=== PATIENT | male | born 1985 | race Caucasian/White ===

== ENCOUNTER 2018-03-17 08:59 | Emergency (ER) | payer SELFPAY ==
[2018-03-17 09:36] LABS: Absolute Lymphocytes (CBC) 1.5 K/uL (0.7-4.9); Absolute Monocytes 0.6 K/uL (0.1-1.3); Absolute Neutrophil 4.9 K/uL (1.8-8.0); Basophils % 0.5 % (0-1.3); Eosinophils % 1.4 % (0-4.4); Hematocrit 40.5 % (39.6-49.0); Lymphocytes % 21.4 % (15.3-44.8); MCH 32.3 pg (27.0-35.0); MCV 94.5 fL (80-100); MPV 8.3 fL (7.6-11.3); Monocytes % 8.1 % (3.3-12.3); RBC Red Blood Cell Count 4.28 M/uL (4.33-5.43)
[2018-03-17 09:58] LABS: ALT/SGPT 21 U/L (12-78); AST/SGOT 23 U/L (15-37); Albumin 4.2 g/dL (3.4-5.0); Alkaline Phosphatase 113 U/L (45-117); BUN Blood Urea Nitrogen 16 mg/dL (7-18); Bicarbonate 28 mmol/L (21-32); Bilirubin Direct 0.2 mg/dL (0-0.2); Bilirubin Total 0.8 mg/dL (0.2-1.0); Glucose Level 120 mg/dL (74-106); Lipase 133 U/L (73-393); Potassium 4.1 mmol/L (3.5-5.1); Protein, Total 7.8 g/dL (6.4-8.2); Sodium Level 140 mmol/L (136-145)
--- NOTE | 2018-03-17 10:22 | RAD REPORT ---
EXAM DESCRIPTION: RAD - Chest Pa And Lat (2 Views) - 03/17/2018 9:28 am CLINICAL HISTORY: ab pain Chest pain. COMPARISON: CHEST SINGLE VIEW dated 04/07/2015; CHEST PA AND LAT 2 VIEW dated 04/07/2015; CHEST PA AND L AT 2 VIEW dated 12/08/2007; ABDOMEN ACUTE SERIES dated 11/08/2007 FINDINGS: The lungs are clear. The heart is normal in size. No displaced fractures. IMPRESSION: No acute or concerning finding suspected.
--- NOTE | 2018-03-17 10:28 | EDPHYS ---
Physician Documentation [facility] Name: Branden Davidson Age: 32 yrs Sex: Male : 1985 Arrival Date: 03/17/2018 Time: 09:01 Bed 20 Private MD: Out, [facility] ED Physician Kris Morton HPI: 03/17 10:30 This 32 yrs old Male presents to ER via Ambulatory with complaints of gs Abdominal Pain. 10:30 The patient presents with abdominal pain in the epigastric area. Onset: The gs symptoms/episode began/occurred 2 month(s) ago. The symptoms do not radiate. Associated signs and symptoms: Pertinent positives: vomiting. The symptoms are described as crampy. Modifying factors: The symptoms are alleviated by nothing, the symptoms are aggravated by alcohol, food. Severity of pain: At its worst the pain was moderate in the emergency department the pain has improved moderately. The patient has experienced similar episodes in the past, several times. The patient has not recently seen a physician. Historical: - Allergies: 09:08 Xanax; hb - Home Meds: 09:08 None [Active]; hb - PMHx: 09:08 Bipolar disorder; Schizophrenia; Seizures; hb - PSHx: 09:08 None; hb - Immunization history:: Adult Immunizations up to date. - Social history:: Smoking status: Patient/guardian denies using tobacco. - Ebola Screening: : No symptoms or risks identified at this time. ROS: 10:30 All other systems are negative. gs Exam: 10:30 Head/Face: Normocephalic, atraumatic. Eyes: Pupils equal round and reactive to light, gs extra-ocular motions intact. Lids and lashes normal. Conjunctiva and sclera are non-icteric and not injected. Cornea within normal limits. Periorbital areas with no swelling, redness, or edema. Neck: Trachea midline, no thyromegaly or masses palpated, and no cervical lymphadenopathy. Supple, full range of motion without nuchal rigidity, or vertebral point tenderness. No Meningismus. Chest/axilla: Normal chest wall appearance and motion. Nontender with no deformity. No lesions are appreciated. Cardiovascular: Regular rate and rhythm with a normal S1 and S2. No gallops, murmurs, or rubs. Normal PMI, no JVD. No pulse deficits. Respiratory: Lungs have equal breath sounds bilaterally, clear to auscultation and percussion. No rales, rhonchi or wheezes noted. No increased work of breathing, no retractions or nasal flaring. Back: No spinal tenderness. No costovertebral tenderness. Full range of motion. Skin: Warm, dry with normal turgor. Normal color with no rashes, no lesions, and no evidence of cellulitis. MS/ Extremity: Pulses equal, no cyanosis. Neurovascular intact. Full, normal range of motion. Neuro: Awake and alert, GCS 15, oriented to person, place, time, and situation. Cranial nerves II-XII grossly intact. Motor strength 5/5 in all extremities. Sensory grossly intact. Cerebellar exam normal. Normal gait. 10:30 Constitutional: The patient appears in no acute distress, alert, awake. 10:30 ENT: Dental exam: dental caries, diffusely. 10:30 Abdomen/GI: Palpation: mild abdominal tenderness, in the epigastric area, right upper quadrant and left upper quadrant. Vital Signs: 09:07 BP 126 / 83; Pulse 61; Resp 16; Temp 97.7(TE); Pulse Ox 100% on R/A; Pain 10/10; hb 10:00 BP 113 / 74; Pulse 81; Resp 17; Pulse Ox 97% on R/A; rb1 MDM: 09:09 Patient medically screened. 10:30 Differential diagnosis: gastritis, gastroesophageal reflux disease, pancreatitis. Data gs reviewed: vital signs, nurses notes. Response to treatment: the patient's symptoms have markedly improved after treatment, no emesis. 03/17 09:10 Order name: Basic Metabolic Panel; Complete Time: 10:13 03/17 09:10 Order name: CBC with Diff; Complete Time: 10: 03/17 09:10 Order name: Hepatic Function; Complete Time: 10:13 03/17 09:10 Order name: Lipase; Complete Time: 10:13 03/17 09:10 Order name: XRAY Chest Pa And Lat (2 Views); Complete Time: 10:26 03/17 09:10 Order name: IV Saline Lock; Complete Time: 09:21 03/17 09:10 Order name: Labs collected and sent; Complete Time: 09:22 Administered Medications: No medications were administered Disposition: 03/17/18 10:28 Discharged to Home. Impression: Gastritis, unspecified. - Condition is Stable. - Discharge Instructions: Gastritis, Adult, [id number]. - Prescriptions for Pepcid 20 mg Oral Tablet - take 1 tablet by ORAL route every 12 hours for 10 days; 30 tablet. - Medication Reconciliation Form, Thank You Letter, Antibiotic Education, Prescription Opioid Use form. - Follow up: Jairo Milton MD; When: 2 - 3 days; Reason: Re-evaluation by your physician. Signatures: Dispatcher [employer] EDMS Kathy Fu, RN RN rb1 Marta Berg RN RN Kris Morton MD MD Corrections: (The following items were deleted from the chart) 10:35 09:10 Urine Dipstick-Ancillary ordered. rb1 10:38 10:28 03/17/2018 10:28 Discharged to Home. Impression: Gastritis, unspecified. rb1 Condition is Stable. Forms are Medication Reconciliation Form, Thank You Letter, Antibiotic Education, Prescription Opioid Use. Follow up: Jairo Milton; When: 2 - 3 days; Reason: Re-evaluation by your physician.
--- NOTE | 2018-03-17 10:28 | ER ---
Nurse's Notes [facility] Name: Branden Davidson Age: 32 yrs Sex: Male : 1985 Arrival Date: 03/17/2018 Time: 09:01 Bed 20 Private MD: Out, [facility] Diagnosis: Gastritis, unspecified Presentation: 03/17 09:06 Presenting complaint: Patient states: RUQ pain x 2 months, nausea and bloody emesis x 2 hb days. Denies blood in stool/diarrhea. Transition of care: patient was not received from another setting of care. Onset of symptoms is unknown. Risk Assessment: Do you want to hurt yourself or someone else? Patient reports no desire to harm self or others. Initial Sepsis Screen: Does the patient meet any 2 criteria? No. Patient's initial sepsis screen is negative. Does the patient have a suspected source of infection? No. Patient's initial sepsis screen is negative. Care prior to arrival: None. 09:06 Method Of Arrival: Ambulatory hb 09:06 Acuity: NOEMI 3 hb Historical: - Allergies: 09:08 Xanax; hb - Home Meds: 09:08 None [Active]; hb - PMHx: 09:08 Bipolar disorder; Schizophrenia; Seizures; hb - PSHx: 09:08 None; hb - Immunization history:: Adult Immunizations up to date. - Social history:: Smoking status: Patient/guardian denies using tobacco. - Ebola Screening: : No symptoms or risks identified at this time. Screenin:08 Abuse screen: Denies threats or abuse. Denies injuries from another. Nutritional hb screening: No deficits noted. Tuberculosis screening: No symptoms or risk factors identified. Fall Risk None identified. Assessment: 09:05 General: Appears in no apparent distress. comfortable, slender, Behavior is calm, rb1 cooperative, Denies fever. Pain: Complains of pain in right upper quadrant Pain currently is 10 out of 10 on a pain scale. Pain began Pain comes and goes for the past two months. Neuro: Level of Consciousness is awake, alert, obeys commands, Oriented to person, place, time, situation. Cardiovascular: Capillary refill < 3 seconds is brisk in bilateral fingers. Respiratory: Airway is patent Respiratory effort is even, unlabored, Respiratory pattern is regular, symmetrical. GI: Bowel sounds present X 4 quads. Abd is soft Abdomen is tender to palpation in epigastric area and right upper quadrant. GI: Patient currently denies bloody stool. : No signs and/or symptoms were reported regarding the genitourinary system. Derm: Skin is pink, warm \T\ dry. 10:00 Reassessment: Patient appears in no apparent distress at this time. Patient and/or rb1 family updated on plan of care and expected duration. Pain level reassessed. Patient is alert, oriented x 3, equal unlabored respirations, skin warm/dry/pink. Vital Signs: 09:07 BP 126 / 83; Pulse 61; Resp 16; Temp 97.7(TE); Pulse Ox 100% on R/A; Pain 10/10; hb 10:00 BP 113 / 74; Pulse 81; Resp 17; Pulse Ox 97% on R/A; rb1 ED Course: 09:01 Patient arrived in ED. sb2 09:02 Out, [facility] is Private Physician. sb2 09:02 Kris Morton MD is Attending Physician. gs 09:03 Kathy Fu, RASHAWN is Primary Nurse. rb1 09:05 Patient has correct armband on for positive identification. Pulse ox on. NIBP on. rb1 09:07 Triage completed. hb 09:08 Arm band placed on right wrist. hb 09:14 Initial lab(s) drawn, by me, sent to lab. Missed attempt(s): 20 gauge in right dh3 antecubital area. Bleeding controlled, band aid applied, catheter tip intact. 09:18 Inserted saline lock: 20 gauge in left antecubital area, using aseptic technique. dh3 09:22 Patient moved to radiology via wheelchair. sw 09:25 XRAY Chest Pa And Lat (2 Views) In Process Unspecified. EDMS 09:25 X-ray completed. Patient tolerated procedure well. jb2 09:26 Patient moved back from radiology. jb2 10:27 Jairo Milton MD is Referral Physician. gs 10:37 No provider procedures requiring assistance completed. IV discontinued, intact, rb1 bleeding controlled, No redness/swelling at site. Pressure dressing applied. Administered Medications: No medications were administered Outcome: 10:28 Discharge ordered by MD. gs 10:37 Discharged to home ambulatory. rb1 10:37 Condition: stable 10:37 Discharge instructions given to patient, Instructed on discharge instructions, follow up and referral plans. medication usage, Demonstrated understanding of instructions, follow-up care, medications, Prescriptions given X 1. 10:38 Patient left the ED. rb1 Signatures: Dispatcher [employer] EDMS Salvatore Bobo2 Mallory Garza Rebecca, RN RN rb1 Marta Berg RN RN Sravanthi Falcon 3 Kris Morotn MD MD Bhumika Ayala 2
[2018-03-17 10:47] VITALS: TEMP 97.7
[2018-03-17 10:48] VITALS: BP 113/74; O2SAT 97
== END 2018-03-17 10:38 | disposition home or self-care (01) ==
LOC: ER 08:59
DX: K29.70 Gastritis, unspecified, without bleeding (principal); Z88.5 Allergy status to narcotic agent
CPT/HCPCS: 36415; 71046; 80048; 80076; 83690; 85025; 99284

== ENCOUNTER 2018-04-18 00:08 | Emergency (ER) | payer SELFPAY ==
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
[2018-04-18 02:37] VITALS: BP 110/76; TEMP 98.2; O2SAT 97
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
== END 2018-04-18 02:31 | disposition home or self-care (01) ==
LOC: ER 00:08
DX: S00.83XA Contusion of other part of head, initial encounter (principal); Y04.0XXA Assault by unarmed brawl or fight, initial encounter; Y93.89 Activity, other specified; Y92.9 Unspecified place or not applicable; Z88.5 Allergy status to narcotic agent
CPT/HCPCS: 70450; 70486; 72125; 76377; 99284

== ENCOUNTER 2018-06-16 14:13 | Emergency (ER) | payer SELFPAY ==
--- NOTE | 2018-06-16 15:27 | EDPHYS ---
Physician Documentation [facility] Name: Branden Davidson Age: 33 yrs Sex: Male : 1985 Arrival Date: 06/16/2018 Time: 14:16 Bed 14 Private MD: ED Physician Kristian Mchugh HPI: 06/16 15:17 This 33 yrs old Male presents to ER via Ambulatory with complaints of Medical kav Complaint. 15:23 The patient presents to the emergency department requesting refill(s) for: vistaril. kav The patient has experienced a previous episode, approximately 6 months ago. The patient has not recently seen a physician. patient reports acute onset of insomnia and is requesting some medication to "...help him sleep". Historical: - Allergies: 14:24 Xanax; aj - Home Meds: 14:24 None [Active]; aj - PMHx: 14:24 Bipolar disorder; Depression; Schizophrenia; Seizures; aj - PSHx: 14:24 None; aj - Immunization history:: Adult Immunizations up to date. - Social history:: Smoking status: Patient/guardian denies using tobacco. - Ebola Screening: : Patient negative for fever greater than or equal to 101.5 degrees Fahrenheit, and additional compatible Ebola Virus Disease symptoms Patient denies exposure to infectious person Patient denies travel to an Ebola-affected area in the 21 days before illness onset No symptoms or risks identified at this time. - Family history:: not pertinent. - Hospitalizations: : No recent hospitalization is reported. ROS: 15:24 Constitutional: Negative for fever, chills, and weight loss, Eyes: Negative for injury, kav pain, redness, and discharge, ENT: Negative for injury, pain, and discharge, Neck: Negative for injury, pain, and swelling, Cardiovascular: Negative for chest pain, palpitations, and edema, Respiratory: Negative for shortness of breath, cough, wheezing, and pleuritic chest pain, Abdomen/GI: Negative for abdominal pain, nausea, vomiting, diarrhea, and constipation, Back: Negative for injury and pain, : Negative for injury, bleeding, discharge, and swelling, MS/Extremity: Negative for injury and deformity, Skin: Negative for injury, rash, and discoloration, Neuro: Negative for headache, weakness, numbness, tingling, and seizure, Allergy/Immunology: Negative for hives, rash, and allergies, Endocrine: Negative for neck swelling, polydipsia, polyuria, polyphagia, and marked weight changes, Hematologic/Lymphatic: Negative for swollen nodes, abnormal bleeding, and unusual bruising. 15:24 Psych: Positive for insomnia, Negative for drug dependence, alcohol dependence, suicide gesture, suicidal ideation. Exam: 15:24 Constitutional: This is a well developed, well nourished patient who is awake, alert, kav and in no acute distress. Head/Face: Normocephalic, atraumatic. Eyes: Pupils equal round and reactive to light, extra-ocular motions intact. Lids and lashes normal. Conjunctiva and sclera are non-icteric and not injected. Cornea within normal limits. Periorbital areas with no swelling, redness, or edema. ENT: Nares patent. No nasal discharge, no septal abnormalities noted. Tympanic membranes are normal and external auditory canals are clear. Oropharynx with no redness, swelling, or masses, exudates, or evidence of obstruction, uvula midline. Mucous membranes moist. Neck: Trachea midline, no thyromegaly or masses palpated, and no cervical lymphadenopathy. Supple, full range of motion without nuchal rigidity, or vertebral point tenderness. No Meningismus. Chest/axilla: Normal chest wall appearance and motion. Nontender with no deformity. No lesions are appreciated. Cardiovascular: Regular rate and rhythm with a normal S1 and S2. No gallops, murmurs, or rubs. Normal PMI, no JVD. No pulse deficits. Respiratory: Lungs have equal breath sounds bilaterally, clear to auscultation and percussion. No rales, rhonchi or wheezes noted. No increased work of breathing, no retractions or nasal flaring. Abdomen/GI: Soft, non-tender, with normal bowel sounds. No distension or tympany. No guarding or rebound. No evidence of tenderness throughout. Back: No spinal tenderness. No costovertebral tenderness. Full range of motion. Skin: Warm, dry with normal turgor. Normal color with no rashes, no lesions, and no evidence of cellulitis. MS/ Extremity: Pulses equal, no cyanosis. Neurovascular intact. Full, normal range of motion. Neuro: Awake and alert, GCS 15, oriented to person, place, time, and situation. Cranial nerves II-XII grossly intact. Motor strength 5/5 in all extremities. Sensory grossly intact. Cerebellar exam normal. Normal gait. 15:24 Psych: Behavior/mood is pleasant, cooperative, Affect is calm, Oriented to person, place, time, Patient has no thoughts/intents to harm self or others. Judgement / Insight is normal. Memory is normal. Delusions/hallucinations are not present. Vital Signs: 14:24 BP 119 / 73; Pulse 76; Resp 20; Temp 98.5; Pulse Ox 97% on R/A; Weight 61.69 kg; Height aj 6 ft. 2 in. (187.96 cm); 15:10 BP 118 / 62; Pulse 56; Resp 12; Temp 97.8; Pulse Ox 99% on R/A; Pain 0/10; ch 14:24 Body Mass Index 17.46 (61.69 kg, 187.96 cm) MDM: 15:14 Medical screening is not applicable. [facility] 15:24 Data reviewed: vital signs, nurses notes. ka Administered Medications: No medications were administered Disposition: 17:25 Co-signature as Attending Physician, Kristian Mchugh MD I agree with the assessment and rn plan of care. Disposition: 06/16/18 15:26 Discharged to Home. Impression: Insomnia, unspecified. - Condition is Stable. - Discharge Instructions: Insomnia. - Prescriptions for Hydroxyzine HCl 25 mg Oral Tablet - take 1 tablet by ORAL route every 6 hours As needed; 12 tablet. - Medication Reconciliation Form, Thank You Letter form. - Follow up: Private Physician; When: 5 - 6 days; Reason: Recheck today's complaints, Continuance of care, Re-evaluation by your physician. - Problem is new. - Symptoms are unchanged. Signatures: Iesha Melchor RN Mirta Cui, RESEARCH PROFESSIONAL RESEARCH PROFESSIONAL Kristian Tate MD MD rn Joaquin, Henry, RN RN hj Corrections: (The following items were deleted from the chart) 15:44 15:26 06/16/2018 15:26 Discharged to Home. Impression: Insomnia, unspecified. Condition hj is Stable. Forms are Medication Reconciliation Form, Thank You Letter, Antibiotic Education, Prescription Opioid Use. Follow up: Private Physician; When: 5 - 6 days; Reason: Recheck today's complaints, Continuance of care, Re-evaluation by your physician. Problem is new. Symptoms are unchanged. kalisa
--- NOTE | 2018-06-16 15:27 | ER ---
Nurse's Notes [facility] Name: Branden Davidson Age: 33 yrs Sex: Male : 1985 Arrival Date: 06/16/2018 Time: 14:16 Bed 14 Private MD: Diagnosis: Insomnia, unspecified Presentation: 06/16 14:22 Presenting complaint: Patient states: Patient would like an RX for sleep medication as aj he has been unable to sleep recently. Transition of care: patient was not received from another setting of care. Onset of symptoms was June 11, 2018. Risk Assessment: Do you want to hurt yourself or someone else? Patient reports no desire to harm self or others. Initial Sepsis Screen: Does the patient meet any 2 criteria? No. Patient's initial sepsis screen is negative. Does the patient have a suspected source of infection? No. Patient's initial sepsis screen is negative. Care prior to arrival: None. 14:22 Method Of Arrival: Ambulatory 14:22 Acuity: NOEMI 5 aj Triage Assessment: 14:24 General: Appears in no apparent distress. comfortable, unkempt, Behavior is calm, aj cooperative, appropriate for age, Smells of body odor. Pain: Denies pain. Neuro: Level of Consciousness is awake, alert, obeys commands, Oriented to person, place, time, situation, Appropriate for age. Respiratory: Airway is patent Respiratory effort is even, unlabored, Respiratory pattern is regular, symmetrical. Derm: Skin is intact, is healthy with good turgor, Skin is pink, warm \T\ dry. normal. Historical: - Allergies: 14:24 Xanax; aj - Home Meds: 14:24 None [Active]; aj - PMHx: 14:24 Bipolar disorder; Depression; Schizophrenia; Seizures; aj - PSHx: 14:24 None; aj - Immunization history:: Adult Immunizations up to date. - Social history:: Smoking status: Patient/guardian denies using tobacco. - Ebola Screening: : Patient negative for fever greater than or equal to 101.5 degrees Fahrenheit, and additional compatible Ebola Virus Disease symptoms Patient denies exposure to infectious person Patient denies travel to an Ebola-affected area in the 21 days before illness onset No symptoms or risks identified at this time. - Family history:: not pertinent. - Hospitalizations: : No recent hospitalization is reported. Screenin:10 Abuse screen: Denies threats or abuse. Denies injuries from another. Nutritional ch screening: No deficits noted. Tuberculosis screening: No symptoms or risk factors identified. Fall Risk None identified. Assessment: 14:40 General: Appears in no apparent distress. uncomfortable, Behavior is cooperative, ch quiet. Pain: Denies pain. Neuro: Level of Consciousness is awake, alert, obeys commands, Oriented to person, place, time, situation, Mechanical Engineering Teacher are equal bilaterally. Cardiovascular: No deficits noted. Respiratory: Airway is patent Respiratory effort is even, unlabored. GI: No signs and/or symptoms were reported involving the gastrointestinal system. Derm: Skin is pink, warm \T\ dry. Vital Signs: 14:24 BP 119 / 73; Pulse 76; Resp 20; Temp 98.5; Pulse Ox 97% on R/A; Weight 61.69 kg; Height aj 6 ft. 2 in. (187.96 cm); 15:10 BP 118 / 62; Pulse 56; Resp 12; Temp 97.8; Pulse Ox 99% on R/A; Pain 0/10; ch 14:24 Body Mass Index 17.46 (61.69 kg, 187.96 cm) aj ED Course: 14:16 Patient arrived in ED. mr 14:23 Triage completed. aj 14:24 Arm band placed on left wrist. Patient placed in waiting room, Patient notified of wait aj time. 14:55 Hanna Casitllo, RN is Primary Nurse. ch 15:10 No apparent distress. Resting quietly. ch 15:10 Patient has correct armband on for positive identification. Bed in low position. Call light in reach. 15:10 No provider procedures requiring assistance completed. Patient did not have IV access ch during this emergency room visit. 15:14 Mirta Chris FNP is PHCP. kav 15:14 Kristian Mchugh MD is Attending Physician. kav Administered Medications: No medications were administered Outcome: 15:26 Discharge ordered by . kav 15:30 Discharged to home ambulatory. ch 15:30 Condition: stable 15:30 Discharge instructions given to patient, Instructed on discharge instructions, follow up and referral plans. medication usage, Demonstrated understanding of instructions, follow-up care, medications, Prescriptions given X 1. 15:44 Patient left the ED. hj Signatures: Hanna Castillo, RN RN Iesha Hawthorne, RN RN Mirta Meadows, WOOD PRODUCTS MANUFACTURER WOOD PRODUCTS MANUFACTURER edy Carvajal, Cecilia mr Woody Victoria, RN RN hj
[2018-06-16 15:56] VITALS: BP 119/73; TEMP 98.5; O2SAT 97
== END 2018-06-16 15:44 | disposition home or self-care (01) ==
LOC: ER 14:13
DX: G47.00 Insomnia, unspecified (principal); Z88.8 Allergy status to other drugs, medicaments and biological substances
CPT/HCPCS: 99282

== ENCOUNTER 2018-08-08 18:13 | Emergency (ER) | payer SELFPAY ==
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
[2018-08-09 05:53] VITALS: TEMP 97.8
[2018-08-09 05:54] VITALS: BP 103/71; O2SAT 96
== END 2018-08-08 21:15 | disposition home or self-care (01) ==
LOC: ER 18:13
DX: S13.4XXA Sprain of ligaments of cervical spine, initial encounter (principal); S20.229A Contusion of unspecified back wall of thorax, initial encounter; X58.XXXA Exposure to other specified factors, initial encounter
CPT/HCPCS: 71046; 72100; 72125; 96360; 96361; 99284

== ENCOUNTER 2018-11-26 22:26 | Emergency (ER) | payer SELFPAY ==
[2018-11-26 23:12] LABS: Absolute Lymphocytes (CBC) 3.1 K/uL (0.7-4.9); Absolute Monocytes 0.5 K/uL (0.1-1.3); Absolute Neutrophil 2.5 K/uL (1.8-8.0); Basophils % 0.4 % (0-1.3); Eosinophils % 5.5 % (0-4.4); Hematocrit 35.6 % (39.6-49.0); Lymphocytes % 48.1 % (15.3-44.8); MPV 7.2 fL (7.6-11.3); Monocytes % 8.2 % (3.3-12.3); RBC Red Blood Cell Count 3.84 M/uL (4.33-5.43)
[2018-11-26 23:16] LABS: Protime INR 0.98
[2018-11-26 23:39] LABS: ALT/SGPT 19 U/L (12-78); AST/SGOT 20 U/L (15-37); Albumin 3.3 g/dL (3.4-5.0); Alkaline Phosphatase 98 U/L (45-117); BUN Blood Urea Nitrogen 11 mg/dL (7-18); Bicarbonate 25 mmol/L (21-32); Bilirubin Direct 0.1 mg/dL (0-0.2); Bilirubin Total 0.2 mg/dL (0.2-1.0); Glucose Level 89 mg/dL (74-106); Potassium 3.2 mmol/L (3.5-5.1); Protein, Total 6.5 g/dL (6.4-8.2); Sodium Level 142 mmol/L (136-145)
[2018-11-26 23:46] LABS: Blood Morphology Comment NOT SEEN (NOT SEEN); Platelet Estimate ADEQ
[2018-11-26 23:58] LABS: Barbiturates NEGATIVE (NEGATIVE); Benzodiazepines NEGATIVE (NEGATIVE); Cocaine NEGATIVE (NEGATIVE); METHAMPHETAM NEGATIVE (NEGATIVE); Methadone NEGATIVE (NEGATIVE); Opiates NEGATIVE (NEGATIVE); Phencyclidine NEGATIVE (NEGATIVE); THC Cannibis NEGATIVE (NEGATIVE)
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
--- NOTE | 2018-11-27 02:24 | EDPHYS ---
Physician Documentation [facility] Name: Branden Davidson Age: 33 yrs Sex: Male : 1985 Arrival Date: 11/26/2018 Time: 22:34 Bed 11 Private MD: ED Physician Kyree Greenberg HPI: 11/27 00:00 This 33 yrs old Male presents to ER via EMS with complaints of ETOH Abuse. pm1 00:00 The patient presents with decreased mental status. Onset: The symptoms/episode pm1 began/occurred today. Possible causes: alcohol, Drank 4 alcoholic drinks today. Associated signs and symptoms: Pertinent negatives: abdominal pain, headache, lightheadedness, nausea, vomiting. Current symptoms: In the emergency department the patient's symptoms are unchanged from the initial presentation. Patient's baseline: Neuro: alert and fully oriented, Motor: no deficits, Ambulation: walks without assistance, Speech: normal. The patient has not experienced similar symptoms in the past. The patient has not recently seen a physician. Historical: - Allergies: 00:08 Xanax; aa1 - Home Meds: 00:08 Unable to obtain [Active]; aa1 - PMHx: 00:08 Bipolar disorder; Depression; Schizophrenia; Seizures; aa1 - PSHx: 00:08 None; aa1 - Immunization history:: Last tetanus immunization: unknown. - Social history:: Smoking status: Patient uses tobacco products, smokes one pack cigarettes per day. Patient uses alcohol, weekly. Patient/guardian denies using street drugs, IV drugs. - Ebola Screening: : No symptoms or risks identified at this time. ROS: 00:00 Constitutional: Negative for fever, chills, and weight loss, Eyes: Negative for injury, pm1 pain, redness, and discharge, ENT: Negative for injury, pain, and discharge, Neck: Negative for injury, pain, and swelling, Cardiovascular: Negative for chest pain, palpitations, and edema, Respiratory: Negative for shortness of breath, cough, wheezing, and pleuritic chest pain, Abdomen/GI: Negative for abdominal pain, nausea, vomiting, diarrhea, and constipation, Back: Negative for injury and pain, : Negative for injury, bleeding, discharge, and swelling, MS/Extremity: Negative for injury and deformity, Skin: Negative for injury, rash, and discoloration, Neuro: Negative for headache, weakness, numbness, tingling, and seizure. Exam: 00:00 Head/Face: Normocephalic, atraumatic. Eyes: Pupils equal round and reactive to light, pm1 extra-ocular motions intact. Lids and lashes normal. Conjunctiva and sclera are non-icteric and not injected. Cornea within normal limits. Periorbital areas with no swelling, redness, or edema. ENT: Nares patent. No nasal discharge, no septal abnormalities noted. Tympanic membranes are normal and external auditory canals are clear. Oropharynx with no redness, swelling, or masses, exudates, or evidence of obstruction, uvula midline. Mucous membranes moist. Neck: Trachea midline, no thyromegaly or masses palpated, and no cervical lymphadenopathy. Supple, full range of motion without nuchal rigidity, or vertebral point tenderness. No Meningismus. Chest/axilla: Normal chest wall appearance and motion. Nontender with no deformity. No lesions are appreciated. Cardiovascular: Regular rate and rhythm with a normal S1 and S2. No gallops, murmurs, or rubs. Normal PMI, no JVD. No pulse deficits. Respiratory: Lungs have equal breath sounds bilaterally, clear to auscultation and percussion. No rales, rhonchi or wheezes noted. No increased work of breathing, no retractions or nasal flaring. Abdomen/GI: Soft, non-tender, with normal bowel sounds. No distension or tympany. No guarding or rebound. No evidence of tenderness throughout. Back: No spinal tenderness. No costovertebral tenderness. Full range of motion. 00:00 Skin: Warm, dry with normal turgor. Normal color with no rashes, no lesions, and no evidence of cellulitis. MS/ Extremity: Pulses equal, no cyanosis. Neurovascular intact. Full, normal range of motion. 00:00 Constitutional: The patient appears alert, awake, smells of alcohol, ETOH. 00:00 Neuro: Orientation: is normal, Motor: moves all fours. Vital Signs: 11/26 22:40 BP 103 / 79; Pulse 75; Resp 14; Temp 97.7; Pulse Ox 96% on R/A; Weight 74.39 kg; Height aa1 6 ft. 2 in. (187.96 cm); Pain 0/10; 11/27 00:05 BP 101 / 72; Pulse 78; Resp 16; Pulse Ox 96% on R/A; Pain 0/10; aa1 01:35 BP 92 / 61; Pulse 76; Resp 16; Pulse Ox 95% on R/A; Pain 0/10; aa1 02:36 BP 104 / 82; Pulse 84; Resp 14; Pulse Ox 96% on R/A; Pain 0/10; aa1 03:30 BP 96 / 72; Pulse 87; Resp 16; Temp 97.9; Pulse Ox 95% on R/A; Pain 0/10; aa1 04:30 BP 91 / 65; Pulse 75; Resp 16; Pulse Ox 96% on R/A; aa1 05:30 BP 95 / 60; Pulse 81; Resp 17; Pulse Ox 98% on R/A; rr5 06:30 BP 97 / 61; Pulse 80; Resp 18; Pulse Ox 99% on R/A; rr5 11/26 22:40 Body Mass Index 21.06 (74.39 kg, 187.96 cm) aa1 MDM: 11/26 22:39 Patient medically screened. pm1 11/27 02:22 Data reviewed: vital signs. Data interpreted: Pulse oximetry: on room air is 95 %. pm1 Interpretation: normal. Counseling: I had a detailed discussion with the patient and/or guardian regarding: the historical points, exam findings, and any diagnostic results supporting the discharge/admit diagnosis, lab results, radiology results, the need for outpatient follow up, to return to the emergency department if symptoms worsen or persist or if there are any questions or concerns that arise at home. 11/26 22:39 Order name: Acetaminophen; Complete Time: 00:41 pm11/26 22:39 Order name: Basic Metabolic Panel; Complete Time: 00:41 pm11/26 22:39 Order name: CBC with Diff; Complete Time: 00:41 pm11/26 22:39 Order name: ETOH Level; Complete Time: 00:41 pm11/26 22:39 Order name: Hepatic Function; Complete Time: 00:41 pm11/26 22:39 Order name: PT-INR; Complete Time: 00:41 pm11/26 22:39 Order name: Ptt, Activated; Complete Time: 00:41 pm11/26 22:39 Order name: Salicylate; Complete Time: 00:41 pm1 11/26 22:39 Order name: Urine Drug Screen; Complete Time: 00:41 pm1 11/26 22:39 Order name: EKG; Complete Time: 22:40 pm1 11/26 23:23 Order name: Manual Differential; Complete Time: 00:41 EDAR 11/26 23:23 Order name: Slides for Pathologist Review EDAR 11/27 00:51 Order name: CT Head Brain wo Cont pm1 11/27 02:27 Order name: ETOH Level; Complete Time: 04:09 pm1 11/26 22:39 Order name: EKG - Nurse/Tech; Complete Time: 00:17 pm1 11/26 22:39 Order name: IV Saline Lock; Complete Time: 23:05 pm1 11/26 22:39 Order name: Labs collected and sent; Complete Time: 23:05 pm1 11/26 22:39 Order name: Urine Dipstick-Ancillary (obtain specimen); Complete Time: 23:17 pm1 Administered Medications: No medications were administered Disposition: 11/27/18 03:45 Discharged to Home. Impression: Alcohol abuse. - Condition is Stable. - Discharge Instructions: Finding Treatment for Addiction, Alcohol Abuse and Nutrition. - Medication Reconciliation Form, Thank You Letter, Antibiotic Education, Prescription Opioid Use form. - Follow up: Emergency Department; When: As needed; Reason: Worsening of condition. Follow up: Private Physician; When: 2 - 3 days; Reason: Recheck today's complaints, Continuance of care, Re-evaluation by your physician. - Problem is new. - Symptoms have improved. Addendum: 11/29/2018 11:03 Co-signature as Attending Physician, Kyree Greenberg MD I agree with the assessment and c campos plan of care. Signatures: Dispatcher [employer] Iris Goodwin RN RN aa1 Kyree Greenberg MD MD cha Williams, Irene, RN RN iw Marinas, Patrick, NP MUCK BOSS pm1 Corrections: (The following items were deleted from the chart) 11/27 02:27 02:23 11/27/2018 02:23 Discharged to Home. Impression: Alcohol abuse. Condition is pm1 Stable. Forms are Medication Reconciliation Form, Thank You Letter, Antibiotic Education, Prescription Opioid Use. Follow up: Emergency Department; When: As needed; Reason: Worsening of condition. Follow up: Private Physician; When: 2 - 3 days; Reason: Recheck today's complaints, Continuance of care, Re-evaluation by your physician. Problem is new. Symptoms have improved. pm1 02:27 02:27 11/27/2018 02:23 Discharged to Home. Impression: Substance abuse; Altered mental pm1 status, unspecified. Condition is Stable. Discharge Instructions: Finding Treatment for Addiction, Alcohol Abuse and Nutrition. Forms are Medication Reconciliation Form, Thank You Letter, Antibiotic Education, Prescription Opioid Use. Follow up: Emergency Department; When: As needed; Reason: Worsening of condition. Follow up: Private Physician; When: 2 - 3 days; Reason: Recheck today's complaints, Continuance of care, Re-evaluation by your physician. Problem is new. Symptoms have improved. pm1 07:42 03:45 11/27/2018 03:45 Discharged to Home. Impression: Alcohol abuse. Condition is iw Stable. Forms are Medication Reconciliation Form, Thank You Letter, Antibiotic Education, Prescription Opioid Use. Follow up: Emergency Department; When: As needed; Reason: Worsening of condition. Follow up: Private Physician; When: 2 - 3 days; Reason: Recheck today's complaints, Continuance of care, Re-evaluation by your physician. Problem is new. Symptoms have improved. pm1
--- NOTE | 2018-11-27 07:48 | EKG ---
Test Date: 2018-11-26 Test Time: 23:27:27 Cafeteria Manager: RUTHY MEASUREMENT RESULTS: Intervals: Rate: 69 [place]: 158 QRSD: 86 QT: 412 QTc: 441 [place]: P: 69 [place]: 158 QRS: 75 T: 47 INTERPRETIVE STATEMENTS: Normal sinus rhythm Normal ECG Compared to ECG 12/04/2015 00:08:51 Left ventricular hypertrophy no longer present Electronically Signed On 11-27-18 07:46:36 CDT by Shashi Rangel
[2018-11-27 07:52] VITALS: TEMP 97.9
[2018-11-27 07:56] VITALS: BP 97/61; O2SAT 99
--- NOTE | 2018-11-28 11:31 | RAD REPORT ---
EXAM DESCRIPTION: CT Head Without Intravenous Contrast CLINICAL HISTORY: The patient is 33 years old and is Male; MENTAL STATUS CHANGE TECHNIQUE: Axial computed tomography images of the head/brain without intravenous contrast. Sagitt al and coronal reformatted images were created and reviewed. This CT exam was performed using one o r more of the following dose reduction techniques: automated exposure control, adjustment of the mA and/or kV according to patient size, and/or use of iterative reconstruction technique. COMPARISON: No relevant prior studies available. FINDINGS: BRAIN: Unremarkable. The tam-white matter differentiation is preserved . No hemorrhag e. No significant white matter disease. No edema. No extra-axial fluid collections. VENTRICLES: Unremarkable. No ventriculomegaly. BONES/JOINTS: No acute fracture. SOFT TISSUES: Unremarkable. SINUSES: Unremarkable as visualized. No acute sinusitis. MASTOID AIR CELLS: Unremarkable as visualized. No mastoid effusion. IMPRESSION: No acute intracranial findings. Electronically signed by: Alexus Roman MD 11/27/2018 1:36 AM CDT Due to temporary technical issues with the PACS/Fluency reporting system, reports are being signed by the in house radiologist as a courtesy to ensure prompt reporting. The interpreting radiologist is f ully responsible for the content of the report.
== END 2018-11-27 07:42 | disposition home or self-care (01) ==
LOC: ER 22:26
DX: F10.10 Alcohol abuse, uncomplicated (principal); F31.9 Bipolar disorder, unspecified; F32.9 Major depressive disorder, single episode, unspecified; F17.210 Nicotine dependence, cigarettes, uncomplicated; Z88.5 Allergy status to narcotic agent
CPT/HCPCS: 36415; 70450; 80048; 80076; 80307; 80320; 80329; 85025; 85610; 85730; 93005

== ENCOUNTER 2019-04-18 13:27 | Emergency (ER) | payer SELFPAY ==
[2019-04-18] MEDS ORDERED: BACI/NEOMYCIN/POLY OINT 15GM TOP ONE (14:26)
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
--- NOTE | 2019-04-18 14:31 | EDPHYS ---
Physician Documentation [facility] Name: Branden Davidson Age: 33 yrs Sex: Male : 1985 Arrival Date: 04/18/2019 Time: 13:33 Bed 16 Private MD: ED Physician Kyree Greenberg HPI: 04/18 14:20 This 33 yrs old Male presents to ER via EMS with complaints of running and christopher fell and hit head, no loc. 14:20 The patient or guardian reports abrasion, pain, swelling. The complaints affect the [facility] forehead. Context of injury: The problem was sustained on a street or driveway. Onset: The symptoms/episode began/occurred just prior to arrival. Associated signs and symptoms: The patient has no apparent associated signs or symptoms. Severity of symptoms: At their worst the symptoms were mild, in the emergency department the symptoms are unchanged. The patient has not experienced similar symptoms in the past. Historical: - Allergies: 13:37 Xanax; bp - Home Meds: 13:37 Unable to obtain [Active]; bp - PMHx: 13:37 Bipolar disorder; Depression; Schizophrenia; Seizures; bp - Immunization history:: Adult Immunizations up to date. - Social history:: Smoking status: unknown. - Ebola Screening: : No symptoms or risks identified at this time. - Family history:: not pertinent. ROS: 14:20 Constitutional: Negative for fever, chills, and weight loss, Eyes: Negative for injury, christopher pain, redness, and discharge, ENT: Negative for injury, pain, and discharge, Neck: Negative for injury, pain, and swelling, Cardiovascular: Negative for chest pain, palpitations, and edema, Respiratory: Negative for shortness of breath, cough, wheezing, and pleuritic chest pain, Abdomen/GI: Negative for abdominal pain, nausea, vomiting, diarrhea, and constipation, Back: Negative for injury and pain, : Negative for injury, bleeding, discharge, and swelling, MS/Extremity: Negative for injury and deformity, Skin: Negative for injury, rash, and discoloration, Psych: Negative for depression, anxiety, suicide ideation, homicidal ideation, and hallucinations, Allergy/Immunology: Negative for hives, rash, and allergies, Endocrine: Negative for neck swelling, polydipsia, polyuria, polyphagia, and marked weight changes, Hematologic/Lymphatic: Negative for swollen nodes, abnormal bleeding, and unusual bruising. 14:20 Neuro: Negative for altered mental status, dizziness, gait disturbance, headache, hearing loss, loss of consciousness, numbness, seizure activity. Exam: 14:20 Constitutional: This is a well developed, well nourished patient who is awake, alert, christopher and in no acute distress. Head/Face: Normocephalic, atraumatic. Eyes: Pupils equal round and reactive to light, extra-ocular motions intact. Lids and lashes normal. Conjunctiva and sclera are non-icteric and not injected. Cornea within normal limits. Periorbital areas with no swelling, redness, or edema. ENT: Nares patent. No nasal discharge, no septal abnormalities noted. Tympanic membranes are normal and external auditory canals are clear. Oropharynx with no redness, swelling, or masses, exudates, or evidence of obstruction, uvula midline. Mucous membranes moist. Neck: Trachea midline, no thyromegaly or masses palpated, and no cervical lymphadenopathy. Supple, full range of motion without nuchal rigidity, or vertebral point tenderness. No Meningismus. Chest/axilla: Normal chest wall appearance and motion. Nontender with no deformity. No lesions are appreciated. Cardiovascular: Regular rate and rhythm with a normal S1 and S2. No gallops, murmurs, or rubs. Normal PMI, no JVD. No pulse deficits. Respiratory: Lungs have equal breath sounds bilaterally, clear to auscultation and percussion. No rales, rhonchi or wheezes noted. No increased work of breathing, no retractions or nasal flaring. Abdomen/GI: Soft, non-tender, with normal bowel sounds. No distension or tympany. No guarding or rebound. No evidence of tenderness throughout. Back: No spinal tenderness. No costovertebral tenderness. Full range of motion. Male : Normal genitalia with no discharge or lesions. MS/ Extremity: Pulses equal, no cyanosis. Neurovascular intact. Full, normal range of motion. Neuro: Awake and alert, GCS 15, oriented to person, place, time, and situation. Cranial nerves II-XII grossly intact. Motor strength 5/5 in all extremities. Sensory grossly intact. Cerebellar exam normal. Normal gait. Psych: Awake, alert, with orientation to person, place and time. Behavior, mood, and affect are within normal limits. 14:20 Skin: Appearance: Color: normal in color, Temperature: normal temperature, Moisture: normal moisture, petechiae, ecchymosis, not noted, flushing, not noted, diaphoresis is not appreciated. Vital Signs: 13:33 BP 116 / 80; Pulse 93; Resp 16; Temp 98.9; Pulse Ox 99% ; Weight 77.11 kg; Height 6 ft. jp3 0 in. (182.88 cm); Pain 10/10; 14:10 BP 119 / 81; Pulse 95; Resp 17; Pulse Ox 99% on R/A; Pain 10/10; rb1 15:00 BP 127 / 94; Pulse 100; Resp 16; Temp 98.3(O); Pulse Ox 98% on R/A; Pain 10/10; rb1 13:33 Body Mass Index 23.06 (77.11 kg, 182.88 cm) jp3 [place] Coma Score: 14:20 Eye Response: spontaneous(4). Verbal Response: oriented(5). Motor Response: obeys [facility] commands(6). Total: 15. MDM: 13:34 Patient medically screened. [facility] 14:20 Data reviewed: vital signs, nurses notes. [facility] 04/18 14:17 Order name: Diet Regular; Complete Time: 14:18 bd Administered Medications: 14:26 Drug: Neosporin Ointment 1 application Route: Topical; Site: affected area; rb1 14:47 Drug: Tylenol 650 mg Route: PO; rb1 15:10 Follow up: Response: No adverse reaction; Pain is decreased rb1 Disposition: 04/18/19 14:30 Discharged to Home. Impression: Abrasion of unspecified part of head - right forehead and brow. - Condition is Stable. - Discharge Instructions: Abrasion, Head Injury, Adult, Abrasion, [id number], Head Injury, Adult, [id number]. - Medication Reconciliation Form, Thank You Letter, Antibiotic Education, Prescription Opioid Use form. - Follow up: Private Physician; When: 2 - 3 days; Reason: Recheck today's complaints, Continuance of care, Re-evaluation by your physician. - Problem is new. - Symptoms have improved. Signatures: Kyree Greenberg MD MD cha Barber, Rebecca RN RN rb1 Warren Bejarano, RN RN bp Corrections: (The following items were deleted from the chart) 15:13 14:30 04/18/2019 14:30 Discharged to Home. Impression: Abrasion of unspecified part of rb1 head - right forehead and brow. Condition is Stable. Forms are Medication Reconciliation Form, Thank You Letter, Antibiotic Education, Prescription Opioid Use. Follow up: Private Physician; When: 2 - 3 days; Reason: Recheck today's complaints, Continuance of care, Re-evaluation by your physician. Problem is new. Symptoms have improved. christopher
[2019-04-18] MEDS ORDERED: ACETAMINOPHEN 325 MG TABLET ONE (14:47)
== END 2019-04-18 15:13 | disposition home or self-care (01) ==
LOC: ER 13:27
DX: S00.81XA Abrasion of other part of head, initial encounter (principal); W18.30XA Fall on same level, unspecified, initial encounter; Y93.9 Activity, unspecified; Y92.410 Unspecified street and highway as the place of occurrence of the external cause
CPT/HCPCS: 99284

== ENCOUNTER 2019-05-13 16:51 | Emergency (ER) | payer SELFPAY ==
[2019-05-13] MEDS ORDERED: ONDANSETRON 4 MG/2 ML VIAL ONE ×2 (17:12→18:34)
[2019-05-13] MEDS ORDERED: NA CHLORIDE 0.9% 1,000 ML ONE (17:12)
[2019-05-13 17:48] LABS: Absolute Lymphocytes (CBC) 1.6 K/uL (0.7-4.9); Basophils % 0.3 % (0-1.3); Hematocrit 41.9 % (39.6-49.0); Lymphocytes % 25.2 % (15.3-44.8); MPV 7.4 fL (7.6-11.3); RBC Red Blood Cell Count 4.43 M/uL (4.33-5.43)
[2019-05-13 18:00] LABS: Albumin 4.2 g/dL (3.4-5.0); Bilirubin Direct 0.1 mg/dL (0-0.2); Bilirubin Total 0.5 mg/dL (0.2-1.0); Potassium 4.1 mmol/L (3.5-5.1); Protein, Total 8.2 g/dL (6.4-8.2)
--- NOTE | 2019-05-13 18:31 | ER ---
Nurse's Notes [facility] Name: Branden Davidson Age: 34 yrs Sex: Male : 1985 Arrival Date: 05/13/2019 Time: 16:53 Bed 2 Private MD: Diagnosis: Nausea and vomiting Presentation: 05/13 16:56 Presenting complaint: Patient states: I have been throwing up since yesterday. la1 Transition of care: patient was not received from another setting of care. Onset of symptoms was May 13, 2019. Risk Assessment: Do you want to hurt yourself or someone else? Patient reports no desire to harm self or others. Initial Sepsis Screen: Does the patient meet any 2 criteria? No. Patient's initial sepsis screen is negative. Does the patient have a suspected source of infection? No. Patient's initial sepsis screen is negative. Care prior to arrival: None. 16:56 Method Of Arrival: Ambulatory la1 16:56 Acuity: NOEMI 3 la1 Historical: - Allergies: 16:56 Xanax; la1 - PMHx: 16:56 Bipolar disorder; Depression; Schizophrenia; Seizures; la1 - Immunization history:: Adult Immunizations up to date. - Social history:: Smoking status: Patient/guardian denies using tobacco. - Ebola Screening: : No symptoms or risks identified at this time. Screenin:40 Abuse screen: Denies threats or abuse. Denies injuries from another. Nutritional jl7 screening: No deficits noted. Tuberculosis screening: No symptoms or risk factors identified. Fall Risk IV access (20 points). Total Hawkins Fall Scale indicates No Risk (0-24 pts). Assessment: 17:40 General: Appears in no apparent distress. uncomfortable, Behavior is calm, cooperative, jl7 appropriate for age. Pain: Denies pain. Neuro: Level of Consciousness is awake, alert, obeys commands, Oriented to person, place, time, situation. Cardiovascular: Patient's skin is warm and dry. Respiratory: Airway is patent Respiratory effort is even, unlabored, Respiratory pattern is regular, symmetrical. GI: Abdomen is flat, non-distended, Reports nausea, vomiting, Patient currently denies constipation, diarrhea. Derm: Skin is pink, warm \\T\\ dry. 18:40 Reassessment: pt drank about 50 mL of water and vomited, ERP notifed and gave VO for jl7 Zofran IVP. Administered medication as ordered and pt reported decreased nausea and states "Can you take this out I'm ready to go." IV dc'd and pt ambulated out of ER with steady gate. Vital Signs: 16:56 BP 126 / 85; Pulse 87; Resp 18; Temp 98.7; Pulse Ox 100% on R/A; Weight 73.03 kg; la1 Height 5 ft. 6 in. (167.64 cm); 16:56 Body Mass Index 25.99 (73.03 kg, 167.64 cm) la1 ED Course: 16:53 Patient arrived in ED. mr 16:57 Triage completed. la1 16:57 Arm band placed on left wrist. la1 17:03 [facility]C [facility] kb 17:03 Jeremi Murillo MD is Attending Physician. kb 17:10 Mariella Crowe RN is Primary Nurse. jl7 17:40 Patient has correct armband on for positive identification. Bed in low position. Call jl7 light in reach. Side rails up X 1. 17:40 Initial lab(s) drawn, by me, sent to lab. Inserted saline lock: 22 gauge in left jl7 antecubital area, using aseptic technique. Blood collected. 18:43 No provider procedures requiring assistance completed. IV discontinued, intact, jl7 bleeding controlled, No redness/swelling at site. Pressure dressing applied. Administered Medications: 17:39 Drug: NS 0.9% 1000 ml Route: IV; Rate: 1000 ml; Site: left antecubital; jl7 18:30 Follow up: IV Status: Completed infusion; IV Intake: 1000ml jl7 17:39 Drug: Zofran 4 mg Route: IVP; Site: left antecubital; jl7 18:14 Follow up: Response: No adverse reaction; Nausea is decreased jl7 18:36 Drug: Zofran 4 mg Route: IVP; Site: left antecubital; jl7 18:40 Follow up: Response: Nausea is decreased jl7 Intake: 18:30 IV: 1000ml; Total: 1000ml. jl7 Outcome: 18:31 Discharge ordered by . kb 18:43 Discharged to home ambulatory. jl7 18:43 Condition: stable 18:43 Discharge instructions given to patient, family, Instructed on discharge instructions, follow up and referral plans. medication usage, Demonstrated understanding of instructions, follow-up care, medications, Prescriptions given X 1. 18:43 Patient left the ED. jl7 Signatures: Farzana Martinez, RAFFYC MECHATRONICS TECHNOLOGIST-Cecilia Johnson mr PardeepDajuan, RN RN la1 Mariella Crowe RN RN jl7
--- NOTE | 2019-05-13 18:31 | EDPHYS ---
Physician Documentation [facility] Name: Branden Davidson Age: 34 yrs Sex: Male : 1985 Arrival Date: 05/13/2019 Time: 16:53 Bed 2 Private MD: ED Physician Jeremi Murillo HPI: 05/13 17:48 This 34 yrs old Male presents to ER via Ambulatory with complaints of kb Vomiting. 17:48 The patient presents to the emergency department with nausea, vomiting. Onset: The kb symptoms/episode began/occurred this morning. Possible causes: unknown. The symptoms are aggravated by nothing. The symptoms are alleviated by nothing. Associated signs and symptoms: Pertinent positives: nausea, vomiting. Severity of symptoms: At their worst the symptoms were moderate in the emergency department the symptoms are unchanged. The patient has not experienced similar symptoms in the past. The patient has not recently seen a physician. "I haven't been able to keep anything down all day and I think I need fluids.". Historical: - Allergies: 16:56 Xanax; la1 - PMHx: 16:56 Bipolar disorder; Depression; Schizophrenia; Seizures; la1 - Immunization history:: Adult Immunizations up to date. - Social history:: Smoking status: Patient/guardian denies using tobacco. - Ebola Screening: : No symptoms or risks identified at this time. ROS: 17:47 Constitutional: Negative for fever, chills, and weight loss, ENT: Negative for injury, kb pain, and discharge, Neck: Negative for injury, pain, and swelling, Cardiovascular: Negative for chest pain, palpitations, and edema, Respiratory: Negative for shortness of breath, cough, wheezing, and pleuritic chest pain, Back: Negative for injury and pain, MS/Extremity: Negative for injury and deformity, Skin: Negative for injury, rash, and discoloration, Neuro: Negative for headache, weakness, numbness, tingling, and seizure. 17:47 Abdomen/GI: Positive for nausea and vomiting. Exam: 17:47 Constitutional: This is a well developed, well nourished patient who is awake, alert, kb and in no acute distress. Head/Face: Normocephalic, atraumatic. ENT: Nares patent. No nasal discharge, no septal abnormalities noted. Tympanic membranes are normal and external auditory canals are clear. Oropharynx with no redness, swelling, or masses, exudates, or evidence of obstruction, uvula midline. Mucous membranes moist. Neck: Trachea midline, no thyromegaly or masses palpated, and no cervical lymphadenopathy. Supple, full range of motion without nuchal rigidity, or vertebral point tenderness. No Meningismus. Chest/axilla: Normal chest wall appearance and motion. Nontender with no deformity. No lesions are appreciated. Cardiovascular: Regular rate and rhythm with a normal S1 and S2. No gallops, murmurs, or rubs. Normal PMI, no JVD. No pulse deficits. Respiratory: Lungs have equal breath sounds bilaterally, clear to auscultation and percussion. No rales, rhonchi or wheezes noted. No increased work of breathing, no retractions or nasal flaring. Back: No spinal tenderness. No costovertebral tenderness. Full range of motion. Skin: Warm, dry with normal turgor. Normal color with no rashes, no lesions, and no evidence of cellulitis. MS/ Extremity: Pulses equal, no cyanosis. Neurovascular intact. Full, normal range of motion. Neuro: Awake and alert, GCS 15, oriented to person, place, time, and situation. Cranial nerves II-XII grossly intact. Motor strength 5/5 in all extremities. Sensory grossly intact. Cerebellar exam normal. Normal gait. 17:47 Abdomen/GI: Inspection: abdomen appears normal, Bowel sounds: normal, in all quadrants, Palpation: soft, in all quadrants, mild abdominal tenderness, in the right upper quadrant and right lower quadrant. Vital Signs: 16:56 BP 126 / 85; Pulse 87; Resp 18; Temp 98.7; Pulse Ox 100% on R/A; Weight 73.03 kg; la1 Height 5 ft. 6 in. (167.64 cm); 16:56 Body Mass Index 25.99 (73.03 kg, 167.64 cm) la1 MDM: 17:04 Patient medically screened. kb 17:47 Data reviewed: vital signs, nurses notes. Data interpreted: Pulse oximetry: on room air kb is 100 %. Interpretation: normal. 18:30 Counseling: I had a detailed discussion with the patient and/or guardian regarding: the kb historical points, exam findings, and any diagnostic results supporting the discharge/admit diagnosis, lab results, the need for outpatient follow up, a family practitioner, to return to the emergency department if symptoms worsen or persist or if there are any questions or concerns that arise at home. 05/13 17:07 Order name: Basic Metabolic Panel; Complete Time: 18:11 kb 05/13 17:07 Order name: CBC with Diff; Complete Time: 17:49 kb 05/13 17:07 Order name: Hepatic Function; Complete Time: 18:11 kb 05/13 17:07 Order name: Lipase; Complete Time: 18:11 kb 05/13 17:07 Order name: IV Saline Lock; Complete Time: 17:39 kb 05/13 17:07 Order name: Labs collected and sent; Complete Time: 17:39 kb 05/13 18:26 Order name: PO challenge; Complete Time: 18:40 kb Administered Medications: 17:39 Drug: NS 0.9% 1000 ml Route: IV; Rate: 1000 ml; Site: left antecubital; jl7 18:30 Follow up: IV Status: Completed infusion; IV Intake: 1000ml 7 17:39 Drug: Zofran 4 mg Route: IVP; Site: left antecubital; jl7 18:14 Follow up: Response: No adverse reaction; Nausea is decreased jl7 18:36 Drug: Zofran 4 mg Route: IVP; Site: left antecubital; jl7 18:40 Follow up: Response: Nausea is decreased jl7 Disposition: 05/14 07:16 Co-signature as Attending Physician, Jeremi Murillo MD I agree with the assessment and kdr plan of care. Disposition: 05/13/19 18:31 Discharged to Home. Impression: Nausea and vomiting. - Condition is Stable. - Discharge Instructions: Nausea and Vomiting, Adult, [id number]. - Prescriptions for Zofran 4 mg Oral Tablet - take 1 tablet by ORAL route every 6 hours As needed; 20 tablet. - Medication Reconciliation Form, Thank You Letter, Antibiotic Education, Prescription Opioid Use form. - Follow up: Emergency Department; When: As needed; Reason: Worsening of condition. Follow up: Private Physician; When: 2 - 3 days; Reason: Recheck today's complaints, Continuance of care, Re-evaluation by your physician. Signatures: Dispatcher [employer] EDFarzana Calderón, CHITRA-Silvestre BUENROSTRO-Jeremi Mccracken MD MD kdr Dajuan Roberto, RN RN la1 Mariella Crowe RN RN jl7 Corrections: (The following items were deleted from the chart) 05/13 18:43 18:31 05/13/2019 18:31 Discharged to Home. Impression: Nausea and vomiting. Condition jl7 is Stable. Forms are Medication Reconciliation Form, Thank You Letter, Antibiotic Education, Prescription Opioid Use. Follow up: Emergency Department; When: As needed; Reason: Worsening of condition. Follow up: Private Physician; When: 2 - 3 days; Reason: Recheck today's complaints, Continuance of care, Re-evaluation by your physician. kb
[2019-05-13 19:32] VITALS: BP 126/85; TEMP 98.7; O2SAT 100
== END 2019-05-13 18:43 | disposition home or self-care (01) ==
LOC: ER 16:51
DX: R11.2 Nausea with vomiting, unspecified (principal); Z88.5 Allergy status to narcotic agent
CPT/HCPCS: 36415; 80048; 80076; 83690; 85025; 96361; 96374; 99284; J2405; J7030

== ENCOUNTER 2019-09-07 17:28 | Emergency (ER) | payer SELFPAY ==
[2019-09-07 18:11] LABS: Absolute Lymphocytes (CBC) 3.2 K/uL (0.7-4.9); Hematocrit 42.1 % (39.6-49.0); Lymphocytes % 42.1 % (15.3-44.8); MPV 7.3 fL (7.6-11.3); RBC Red Blood Cell Count 4.66 M/uL (4.33-5.43)
[2019-09-07 19:17] LABS: Albumin 3.9 g/dL (3.4-5.0); Bilirubin Direct 0.1 mg/dL (0-0.2); Bilirubin Total 0.6 mg/dL (0.2-1.0); Potassium 4.4 mmol/L (3.5-5.1); Protein, Total 8.1 g/dL (6.4-8.2)
--- NOTE | 2019-09-07 20:37 | RAD REPORT ---
EXAM DESCRIPTION: CT - Abdomen Pelvis W Contrast - 09/07/2019 8:04 pm CLINICAL HISTORY: abdominal pain, rectal bleeding COMPARISON: CT ABD PELVIS W CONTRAST dated 12/08/2007 TECHNIQUE: Biphasic, helical CT imaging of the abdomen and pelvis was performed following 100 ml non -ionic IV contrast. No oral contrast given. All CT scans are performed using dose optimization technique as appropriate and may include automated exposure control or mA/KV adjustment according to patient size. FINDINGS: No suspicious findings in the lung bases. The liver, spleen, and pancreas show no suspicious findings. Gallbladder is contracted. No biliary tr ee dilatation. Gallstones can be occult on CT imaging. Symmetric renal function is seen with no hydronephrosis or suspicious renal mass. No pyelonephritis o r acute parenchymal process. No bladder abnormalities. No adrenal abnormalities. No dilated bowel loops or bowel wall thickening. Appendix is normal peer no free air, pneumatosis or focal inflammatory stranding. Trace free fluid in the dependent portion of the pelvis. No hernia, ma ss or bulky lymphadenopathy. No suspicious bony findings. IMPRESSION: No appendicitis or other emergent CT abdomen or pelvis finding. As detailed above, no acute findings noted. No significant change from comparison.
--- NOTE | 2019-09-07 21:11 | EDPHYS ---
Physician Documentation [facility] Name: Branden Davidson Age: 34 yrs Sex: Male : 1985 Arrival Date: 09/07/2019 Time: 17:31 Bed 24 Private MD: ED Physician Kristian Mchugh HPI: 09/07 18:09 This 34 yrs old Male presents to ER via Ambulatory with complaints of Rectal jmm Bleeding. 18:09 The patient presents to the emergency department with bleeding from the rectum/anus, jmm that is mild. Onset: The symptoms/episode began/occurred acutely, today. Context: the patient has no known special context relating to the rectal area complaint(s). Modifying factors: The symptoms are alleviated by nothing, The symptoms are aggravated by bowel movement. Associate signs and symptoms: Pertinent positives: abdominal pain in the right lower quadrant and left lower quadrant. The patient has not experienced similar symptoms in the past. Historical: - Allergies: 17:35 Xanax; tw2 - Home Meds: 17:35 "i dont know i didnt bring that medication" [Active]; tw2 - PMHx: 17:35 Bipolar disorder; Depression; Schizophrenia; Seizures; tw2 - PSHx: 17:35 None; tw2 - Immunization history:: Adult Immunizations. - Coronavirus screen:: The patient has NOT traveled to [place], [place], or [place] in the past 14 days. - Social history:: Smoking status: Reported history of juuling and/or vaping. Patient/guardian denies using alcohol, street drugs, caffeine. - Ebola Screening: : Patient denies travel to an Ebola-affected area in the 21 days before illness onset. ROS: 18:09 Constitutional: Negative for fever, chills, and weight loss, Cardiovascular: Negative jmm for chest pain, palpitations, and edema, Respiratory: Negative for shortness of breath, cough, wheezing, and pleuritic chest pain. 18:09 Abdomen/GI: Positive for abdominal pain, rectal bleeding. 18:09 All other systems are negative. Exam: 18:09 Constitutional: This is a well developed, well nourished patient who is awake, alert, jmm and in no acute distress. Head/Face: atraumatic. Eyes: EOMI, no conjunctival erythema appreciated ENT: Moist Mucus Membranes Neck: Trachea midline, Supple Chest/axilla: Normal chest wall appearance and motion. Cardiovascular: Regular rate and rhythm. No edema appreciated Respiratory: Normal respirations, no respiratory distress appreciated Back: Normal ROM 18:09 Skin: General appearance color normal MS/ Extremity: Moves all extremities, no obvious deformities appreciated, no edema noted to the lower extremities Neuro: Awake and alert, normal gait Psych: Behavior is normal, Mood is normal, Patient is cooperative and pleasant 18:09 Abdomen/GI: Inspection: abdomen appears normal, Bowel sounds: normal, Palpation: soft, mild abdominal tenderness, in the right lower quadrant and left lower quadrant, Rectal exam: Stool: grossly bloody, guaiac positive, hemorrhoid(s), are not appreciated. Vital Signs: 17:34 BP 119 / 89; Pulse 84; Resp 18; Temp 97.3; Pulse Ox 97% on R/A; Weight 88.9 kg (R); tw2 Height 6 ft. 2 in. (187.96 cm); Pain 5/10; 18:06 BP 129 / 89; Pulse 80; Resp 18; Pulse Ox 100% on R/A; mg2 18:59 BP 126 / 86; Pulse 70; Resp 18; Pulse Ox 97% on R/A; mg2 20:30 BP 115 / 78; Pulse 78; Resp 18; Temp 98; Pulse Ox 100% on R/A; mg2 21:41 BP 122 / 78; Pulse 74; Resp 18; Pulse Ox 100% on R/A; mg2 17:34 Body Mass Index 25.16 (88.90 kg, 187.96 cm) tw2 MDM: 17:53 Patient medically screened. [facility] 21:09 Data reviewed: vital signs, nurses notes. Counseling: I had a detailed discussion with [facility] the patient and/or guardian regarding: the historical points, exam findings, and any diagnostic results supporting the discharge/admit diagnosis, lab results, radiology results, the need for outpatient follow up, to return to the emergency department if symptoms worsen or persist or if there are any questions or concerns that arise at home. ED course: Patient is alert and non toxic in appearance in the ED. CT negative. H/H normal. Patient advised to follow up with GI for further evaluation. patient otherwise given strict return precautions. patient understood and agrees with the plan of care. . 09/07 17:54 Order name: [place] em1 09/07 17:57 Order name: Basic Metabolic Panel [facility] 09/07 17:57 Order name: CBC with Diff [facility] 09/07 17:57 Order name: Creatinine for Radiology [facility] 09/07 17:57 Order name: Hepatic Function [facility] 09/07 17:57 Order name: Lipase [facility] 09/07 17:57 Order name: CT Abd/Pelvis - IV Contrast Only [facility] 09/07 18:30 Order name: Occult Blood--Ancillary; Complete Time: 18:39 EDMS 09/07 18:39 Order name: CBC with Automated Diff; Complete Time: 18:39 EDMS 09/07 19:18 Order name: Basic Metabolic Panel; Complete Time: 19:25 EDMS 09/07 19:18 Order name: Liver (Hepatic) Function; Complete Time: 19:25 EDMS 09/07 19:18 Order name: Lipase; Complete Time: 19:25 EDMS 09/07 19:18 Order name: Creatinine (Radiology Only); Complete Time: 19:25 EDMS 09/07 21:39 Order name: CT; Complete Time: 16:30 MS 09/07 17:57 Order name: IV Saline Lock; Complete Time: 18:03 [facility] 09/07 17:57 Order name: Labs collected and sent; Complete Time: 18:03 [facility] Administered Medications: No medications were administered Disposition: 09/07/19 21:10 Discharged to Home. Impression: Gastrointestinal hemorrhage, unspecified. - Condition is Stable. - Discharge Instructions: Gastrointestinal Bleeding. - Prescriptions for Pepcid 20 mg Oral Tablet - take 1 tablet by ORAL route every 12 hours for 10 days; 20 tablet. Anusol- HC 25 mg Rectal Suppository - insert 1 suppository by RECTAL route every 12 hours As needed; 20 suppository. - Medication Reconciliation Form, Thank You Letter, Antibiotic Education, Prescription Opioid Use form. - Follow up: Campos Garcia MD; When: 2 - 3 days; Reason: Recheck today's complaints, Continuance of care, Re-evaluation by your physician. Addendum: 09/09/2019 07:27 Co-signature as Attending Physician, Kristian Mchugh MD. r n Signatures: Dispatcher [employer] [facility] Juan Anne PA PA [facility] Kristian Mchugh MD MD rn Wise, Tara, RN RN tw2 Micheal Rios, RN RN mg2 Corrections: (The following items were deleted from the chart) 09/07 21:43 21:10 09/07/2019 21:10 Discharged to Home. Impression: Gastrointestinal hemorrhage, mg2 unspecified. Condition is Stable. Forms are Medication Reconciliation Form, Thank You Letter, Antibiotic Education, Prescription Opioid Use. Follow up: Campos Garcia; When: 2 - 3 days; Reason: Recheck today's complaints, Continuance of care, Re-evaluation by your physician. fran
--- NOTE | 2019-09-07 21:11 | ER ---
Nurse's Notes [facility] Name: Branden Davidson Age: 34 yrs Sex: Male : 1985 Arrival Date: 09/07/2019 Time: 17:31 Bed 24 Private MD: Diagnosis: Gastrointestinal hemorrhage, unspecified Presentation: 09/07 17:32 Presenting complaint: Patient states: i was taking a #2 and i saw blood when i wiped, tw2 it was bright red, it was about a half dollar size amount and bright red blood was there each time i wiped. Transition of care: patient was not received from another setting of care. Onset of symptoms was September 07, 2019. Risk Assessment: Do you want to hurt yourself or someone else? Patient reports no desire to harm self or others. Initial Sepsis Screen: Does the patient meet any 2 criteria? No. Patient's initial sepsis screen is negative. Does the patient have a suspected source of infection? No. Patient's initial sepsis screen is negative. Care prior to arrival: None. 17:32 Method Of Arrival: Ambulatory tw2 17:32 Acuity: NOEMI 3 tw2 Triage Assessment: 17:34 General: Appears in no apparent distress. Behavior is calm, cooperative, appropriate tw2 for age. Pain: Complains of pain in left upper quadrant and left lower quadrant. GI: Reports lower abdominal pain, upper abdominal pain, rectal bleeding, "my stomach just started hurting 5 hours ago". Historical: - Allergies: 17:35 Xanax; tw2 - Home Meds: 17:35 "i dont know i didnt bring that medication" [Active]; tw2 - PMHx: 17:35 Bipolar disorder; Depression; Schizophrenia; Seizures; tw2 - PSHx: 17:35 None; tw2 - Immunization history:: Adult Immunizations. - Coronavirus screen:: The patient has NOT traveled to [place], [place], or [place] in the past 14 days. - Social history:: Smoking status: Reported history of juuling and/or vaping. Patient/guardian denies using alcohol, street drugs, caffeine. - Ebola Screening: : Patient denies travel to an Ebola-affected area in the 21 days before illness onset. Screenin:39 Abuse screen: Denies threats or abuse. Nutritional screening: No deficits noted. tw2 Tuberculosis screening: No symptoms or risk factors identified. Fall Risk None identified. Assessment: 17:51 General: Appears in no apparent distress. comfortable, Behavior is calm, cooperative. mg2 Pain: Complains of pain in abdomen. Neuro: Level of Consciousness is awake, alert, obeys commands, Oriented to person, place, time, situation. Cardiovascular: Capillary refill < 3 seconds. Respiratory: Airway is patent Respiratory effort is even, unlabored, Respiratory pattern is regular, symmetrical. GI: Reports rectal bleeding. : No signs and/or symptoms were reported regarding the genitourinary system. EENT: No signs and/or symptoms were reported regarding the EENT system. Derm: Skin is intact, is healthy with good turgor, Skin is pink, warm \\T\\ dry. normal. Musculoskeletal: Circulation, motion, and sensation intact. Capillary refill < 3 seconds. 19:00 Reassessment: Patient appears in no apparent distress at this time. Patient and/or mg2 family updated on plan of care and expected duration. Pain level reassessed. Patient is alert, oriented x 3, equal unlabored respirations, skin warm/dry/pink. Vital Signs: 17:34 BP 119 / 89; Pulse 84; Resp 18; Temp 97.3; Pulse Ox 97% on R/A; Weight 88.9 kg (R); tw2 Height 6 ft. 2 in. (187.96 cm); Pain 5/10; 18:06 BP 129 / 89; Pulse 80; Resp 18; Pulse Ox 100% on R/A; mg2 18:59 BP 126 / 86; Pulse 70; Resp 18; Pulse Ox 97% on R/A; mg2 20:30 BP 115 / 78; Pulse 78; Resp 18; Temp 98; Pulse Ox 100% on R/A; mg2 21:41 BP 122 / 78; Pulse 74; Resp 18; Pulse Ox 100% on R/A; mg2 17:34 Body Mass Index 25.16 (88.90 kg, 187.96 cm) tw2 ED Course: 17:31 Patient arrived in ED. mr 17:33 Triage completed. tw2 17:33 Arm band placed on. tw2 17:36 Bed in low position. Call light in reach. tw2 17:38 [facility] 17:38 Kristian Mchugh MD is Attending Physician. [facility] 17:51 Micheal Rios, RN is Primary Nurse. mg2 18:00 Inserted saline lock: 20 gauge in right antecubital area, using aseptic technique. mg2 Blood collected. 18:03 No provider procedures requiring assistance completed. mg2 19:55 Inserted saline lock: 20 gauge in right forearm, using aseptic technique. ds4 21:10 Campos Garcia MD is Referral Physician. [facility] 21:42 IV discontinued, intact, bleeding controlled, No redness/swelling at site. Pressure mg2 dressing applied. Administered Medications: No medications were administered Outcome: 21:10 Discharge ordered by . [facility] 21:42 Discharged to home ambulatory. mg2 21:42 Condition: stable 21:42 Discharge instructions given to patient, Instructed on discharge instructions, follow up and referral plans. medication usage, Demonstrated understanding of instructions, follow-up care, medications, Prescriptions given X 2. 21:43 Patient left the ED. mg2 Signatures: Juan Anne PA PA [facility] WeiCecilia James Krugerovan ds4 Gely Bullard, RN RN tw2 Micheal Rios, RASHAWN RN mg2
[2019-09-07 21:51] VITALS: TEMP 98; O2SAT 100
[2019-09-07 21:53] VITALS: BP 122/78
== END 2019-09-07 21:43 | disposition home or self-care (01) ==
LOC: ER 17:28
DX: K92.2 Gastrointestinal hemorrhage, unspecified (principal); Z88.8 Allergy status to other drugs, medicaments and biological substances
CPT/HCPCS: 36415; 74177; 80048; 80076; 82272; 83690; 85025; 99283; Q9967

== ENCOUNTER 2019-09-17 15:11 | Emergency (ER) | payer SELFPAY ==
[2019-09-17 16:13] LABS: Barbiturates NEGATIVE (NEGATIVE); Benzodiazepines NEGATIVE (NEGATIVE); Cocaine NEGATIVE (NEGATIVE); METHAMPHETAM NEGATIVE (NEGATIVE); Methadone NEGATIVE (NEGATIVE); Opiates NEGATIVE (NEGATIVE); Phencyclidine NEGATIVE (NEGATIVE); THC Cannibis NEGATIVE (NEGATIVE)
[2019-09-17 16:17] LABS: Absolute Lymphocytes (CBC) 1.9 K/uL (0.7-4.9); Basophils % 0.6 % (0-1.3); Hematocrit 42.7 % (39.6-49.0); Lymphocytes % 26.5 % (15.3-44.8); MPV 7.3 fL (7.6-11.3); RBC Red Blood Cell Count 4.77 M/uL (4.33-5.43)
[2019-09-17 16:19] LABS: Protime INR 0.97
[2019-09-17 16:29] LABS: Albumin 4.2 g/dL (3.4-5.0); Bilirubin Direct 0.2 mg/dL (0-0.2); Bilirubin Total 0.6 mg/dL (0.2-1.0); Potassium 3.8 mmol/L (3.5-5.1); Protein, Total 7.9 g/dL (6.4-8.2)
--- NOTE | 2019-09-17 16:39 | EDPHYS ---
Physician Documentation [facility] Name: Branden Davidson Age: 34 yrs Sex: Male : 1985 Arrival Date: 09/17/2019 Time: 15:13 Bed 16 Private MD: Kyree Nguyen HPI: 09/17 16:20 This 34 yrs old Male presents to ER via Ambulatory with complaints of jr8 Probable Seizure. 16:20 The patient presents after having a single isolated seizure, that lasted 2 minute(s). jr8 Character of seizure(s): Loss of consciousness: the patient did not lose consciousness, Motor activity: blank stare, Incontinence: none, Apnea: the patient did not experience apnea, Circulation: the patient did not experience evidence of pulse disturbance, Eye movements: are unknown. Seizure onset: just prior to arrival. Context: the seizure(s) was witnessed, by a friend, occurred at home, occurred while the patient was at rest, sitting, Contributing factors: vaping . Associated injury: The patient did not suffer any apparent associated injury. Current symptoms: Currently, the patient is not experiencing any symptoms, the patient feels back to baseline, no decreased level of consciousness, no confusion, no dysphasia, no headache, no paralysis, no visual changes. The patient has experienced similar episodes in the past, a few times. The patient has not recently seen a physician. Last seizure two years ago. Denies anything different other than vaping . Historical: - Allergies: 15:16 Xanax; aj1 - Home Meds: 15:16 "i dont know i didnt bring that medication" [Active]; aj1 - PMHx: 15:16 Bipolar disorder; Depression; Schizophrenia; Seizures; aj1 - Immunization history:: Flu vaccine is up to date. - Coronavirus screen:: The patient has NOT traveled to [place] in the past 14 days. - Social history:: Smoking status: Reported history of juuling and/or vaping. - Ebola Screening: : Patient denies travel to an Ebola-affected area in the 21 days before illness onset. ROS: 16:20 Eyes: Negative for injury, pain, redness, and discharge, ENT: Negative for injury, jr8 pain, and discharge, Neck: Negative for injury, pain, and swelling, Cardiovascular: Negative for chest pain, palpitations, and edema, Respiratory: Negative for shortness of breath, cough, wheezing, and pleuritic chest pain, Abdomen/GI: Negative for abdominal pain, nausea, vomiting, diarrhea, and constipation, Back: Negative for injury and pain, MS/Extremity: Negative for injury and deformity, Skin: Negative for injury, rash, and discoloration. 16:20 Neuro: Positive for seizure activity. Exam: 16:20 Eyes: Pupils equal round and reactive to light, extra-ocular motions intact. Lids and jr8 lashes normal. Conjunctiva and sclera are non-icteric and not injected. Cornea within normal limits. Periorbital areas with no swelling, redness, or edema. ENT: Nares patent. No nasal discharge, no septal abnormalities noted. Tympanic membranes are normal and external auditory canals are clear. Oropharynx with no redness, swelling, or masses, exudates, or evidence of obstruction, uvula midline. Mucous membranes moist. Neck: Trachea midline, no thyromegaly or masses palpated, and no cervical lymphadenopathy. Supple, full range of motion without nuchal rigidity, or vertebral point tenderness. No Meningismus. Cardiovascular: Regular rate and rhythm with a normal S1 and S2. No gallops, murmurs, or rubs. Normal PMI, no JVD. No pulse deficits. Respiratory: Lungs have equal breath sounds bilaterally, clear to auscultation and percussion. No rales, rhonchi or wheezes noted. No increased work of breathing, no retractions or nasal flaring. Abdomen/GI: Soft, non-tender, with normal bowel sounds. No distension or tympany. No guarding or rebound. No evidence of tenderness throughout. Back: No spinal tenderness. No costovertebral tenderness. Full range of motion. Skin: Warm, dry with normal turgor. Normal color with no rashes, no lesions, and no evidence of cellulitis. MS/ Extremity: Pulses equal, no cyanosis. Neurovascular intact. Full, normal range of motion. Neuro: Awake and alert, GCS 15, oriented to person, place, time, and situation. Cranial nerves II-XII grossly intact. Motor strength 5/5 in all extremities. Sensory grossly intact. Cerebellar exam normal. Normal gait. Vital Signs: 15:16 BP 128 / 92; Pulse 91; Resp 18; Temp 97.9; Pulse Ox 96% on R/A; Weight 90.72 kg (R); aj1 Height 6 ft. 2 in. (187.96 cm) (R); Pain 0/10; 15:44 Pulse 80; Pulse Ox 96% on R/A; ae4 16:51 BP 109 / 78; Pulse 86; Resp 16 S; Pulse Ox 100% on R/A; jl7 15:16 Body Mass Index 25.68 (90.72 kg, 187.96 cm) aj1 [place] Coma Score: 15:16 Eye Response: spontaneous(4). Verbal Response: oriented(5). Motor Response: obeys aj1 commands(6). Total: 15. MDM: 15:23 Patient medically screened. jr8 16:20 Data reviewed: vital signs, nurses notes, lab test result(s), EKG. Data interpreted: jr8 Pulse oximetry: on room air is 96 %. Interpretation: normal. Counseling: I had a detailed discussion with the patient and/or guardian regarding: the historical points, exam findings, and any diagnostic results supporting the discharge/admit diagnosis, lab results, the need for outpatient follow up, a family practitioner, to return to the emergency department if symptoms worsen or persist or if there are any questions or concerns that arise at home. ED course: Patient has remained stable and without seizure activity. Isolated seizure today. Recommended f/u with neurology but will not start on antiepileptic at this time. 09/17 15:37 Order name: Basic Metabolic Panel 09/17 15:37 Order name: CBC with Diff 09/17 15:37 Order name: ETOH Level 09/17 15:37 Order name: Hepatic Function 09/17 15:37 Order name: PT-INR 09/17 15:37 Order name: Ptt, Activated 09/17 15:37 Order name: Urine Drug Screen 09/17 16:13 Order name: Urine Drug Screen; Complete Time: 16:18 EDMS 09/17 16:22 Order name: CBC with Automated Diff; Complete Time: 16:21 EDMS 09/17 16:22 Order name: Protime (+INR); Complete Time: 16:21 EDMS 09/17 16:22 Order name: PTT, Activated Partial Thromb; Complete Time: 16:21 EDMS 09/17 16:30 Order name: Basic Metabolic Panel; Complete Time: 16:34 EDMS 09/17 16:30 Order name: Liver (Hepatic) Function; Complete Time: 16:34 EDCO 09/17 16:39 Order name: Alcohol Serum/Plasma; Complete Time: 16:45 EDCO 09/17 15:37 Order name: IV; Complete Time: 16:04 rust 09/17 15:37 Order name: Labs collected and sent; Complete Time: 16:04 jr8 09/17 15:37 Order name: Urine Dipstick-Ancillary (obtain specimen); Complete Time: 16:04 jr8 Administered Medications: No medications were administered Disposition: 09/18 08:16 Co-signature as Attending Physician, Kyree Greenberg MD I agree with the assessment and christopher plan of care. Disposition: 09/17/19 16:38 Discharged to Home. Impression: Seizure. - Condition is Stable. - Discharge Instructions: Seizure, Adult. - Medication Reconciliation Form, Thank You Letter, Antibiotic Education, Prescription Opioid Use form. - Follow up: Private Physician; When: 2 - 3 days; Reason: Recheck today's complaints, Continuance of care, Re-evaluation by your physician. - Problem is new. - Symptoms have improved. Signatures: Dispatcher [employer] Kiara Parham RN RN aj1 Kyree Greenberg MD MD cha Roszak, Josh, PA PA jr8 Mariella Crowe RN RN jl7 Corrections: (The following items were deleted from the chart) 09/17 16:51 15:37 EKG - Nurse/Tech ordered. jr8 jl7 16:55 16:38 09/17/2019 16:38 Discharged to Home. Impression: Seizure. Condition is Stable. jl7 Forms are Medication Reconciliation Form, Thank You Letter, Antibiotic Education, Prescription Opioid Use. Follow up: Private Physician; When: 2 - 3 days; Reason: Recheck today's complaints, Continuance of care, Re-evaluation by your physician. Problem is new. Symptoms have improved. jr8
--- NOTE | 2019-09-17 16:39 | ER ---
Nurse's Notes [facility] Name: Branden Davidson Age: 34 yrs Sex: Male : 1985 Arrival Date: 09/17/2019 Time: 15:13 Bed 16 Private MD: Diagnosis: Seizure Presentation: 09/17 15:13 Presenting complaint: Patient states: He had a seizure an hour ago, states that he has aj1 a history of seizure, but he doesn't take anything for them. Transition of care: patient was not received from another setting of care. Onset of symptoms was September 17, 2019. Risk Assessment: Do you want to hurt yourself or someone else? Patient reports no desire to harm self or others. Initial Sepsis Screen: Does the patient meet any 2 criteria? No. Patient's initial sepsis screen is negative. Does the patient have a suspected source of infection? No. Patient's initial sepsis screen is negative. Care prior to arrival: None. 15:13 Method Of Arrival: Ambulatory aj 15:13 Acuity: NOEMI 3 aj1 Triage Assessment: 15:16 General: Appears in no apparent distress. comfortable, Behavior is calm, cooperative, aj1 appropriate for age. Pain: Denies pain. Neuro: Level of Consciousness is awake, alert, obeys commands, Oriented to person, place, time, situation. Cardiovascular: Patient's skin is warm and dry. Respiratory: Airway is patent Respiratory effort is even, unlabored, Respiratory pattern is regular, symmetrical. Historical: - Allergies: 15:16 Xanax; aj1 - Home Meds: 15:16 "i dont know i didnt bring that medication" [Active]; aj1 - PMHx: 15:16 Bipolar disorder; Depression; Schizophrenia; Seizures; aj1 - Immunization history:: Flu vaccine is up to date. - Coronavirus screen:: The patient has NOT traveled to [place] in the past 14 days. - Social history:: Smoking status: Reported history of juuling and/or vaping. - Ebola Screening: : Patient denies travel to an Ebola-affected area in the 21 days before illness onset. Screenin:30 Abuse screen: Denies threats or abuse. Denies injuries from another. Nutritional jl7 screening: No deficits noted. Tuberculosis screening: No symptoms or risk factors identified. Fall Risk None identified. Assessment: 15:30 General: Appears in no apparent distress. uncomfortable, Behavior is cooperative, flat, jl7 pt reports "I was vaping just before I had the seizure." Report vaping nicotine and not THC. Pain: Denies pain. Neuro: Level of Consciousness is awake, alert, obeys commands, Oriented to person, place, time, situation, Moves all extremities. Full function Gait is steady, Speech is normal, Facial symmetry appears normal. Cardiovascular: Patient's skin is warm and dry. Respiratory: Airway is patent Respiratory effort is even, unlabored, Respiratory pattern is regular, symmetrical. Derm: Skin is pink, warm \\T\\ dry. 16:30 Reassessment: Patient appears in no apparent distress at this time. No changes from jl7 previously documented assessment. Patient and/or family updated on plan of care and expected duration. Pain level reassessed. Patient is alert, oriented x 3, equal unlabored respirations, skin warm/dry/pink. Vital Signs: 15:16 BP 128 / 92; Pulse 91; Resp 18; Temp 97.9; Pulse Ox 96% on R/A; Weight 90.72 kg (R); aj1 Height 6 ft. 2 in. (187.96 cm) (R); Pain 0/10; 15:44 Pulse 80; Pulse Ox 96% on R/A; ae4 16:51 BP 109 / 78; Pulse 86; Resp 16 S; Pulse Ox 100% on R/A; jl7 15:16 Body Mass Index 25.68 (90.72 kg, 187.96 cm) aj1 [place] Coma Score: 15:16 Eye Response: spontaneous(4). Verbal Response: oriented(5). Motor Response: obeys aj1 commands(6). Total: 15. ED Course: 15:13 Patient arrived in ED. mr 15:16 Triage completed. aj1 15:16 Arm band placed on Patient placed in an exam room. aj1 15:23 Clive Tanner PA is PHCP. jr8 15:23 Kyree Greenberg MD is Attending Physician. jr8 15:25 Warm blanket given. Verbal reassurance given. tuna purse seiner on. Pulse ox on. NIBP on. jp3 15:25 Bed in low position. Call light in reach. Side rails up X 1. Side rails up X2. Seizure jp3 precautions initiated. 15:29 Mariella Crowe, RN is Primary Nurse. jl7 15:30 Urine collected: clean catch specimen, clear, fatoumata colored, Legal drug screen obtained jp3 per protocol. Patient maintains SpO2 saturation greater than 95% on room air. 16:30 No provider procedures requiring assistance completed. Patient did not have IV access jl7 during this emergency room visit. Administered Medications: No medications were administered Outcome: 16:38 Discharge ordered by . maite 16:55 Discharged to home ambulatory. jl7 16:55 Condition: stable 16:55 Discharge instructions given to patient, Instructed on discharge instructions, follow up and referral plans. Demonstrated understanding of instructions, follow-up care. 16:55 Patient left the ED. jl7 Signatures: Kiara Delgado, RN RN Cecilia Henry mr Clive Tanner PA PA jr8 Mariella Crowe, RN RN jl7 Jesus Chauhan jp3 Kevin Braga RN RN ae4
[2019-09-17 18:30] VITALS: TEMP 97.9
[2019-09-17 18:32] VITALS: BP 109/78; O2SAT 100
== END 2019-09-17 16:55 | disposition home or self-care (01) ==
LOC: ER 15:11
DX: G40.909 Epilepsy, unspecified, not intractable, without status epilepticus (principal); F17.290 Nicotine dependence, other tobacco product, uncomplicated; Z88.5 Allergy status to narcotic agent
CPT/HCPCS: 36415; 80048; 80076; 80307; 80320; 85025; 85610; 85730; 99284

== ENCOUNTER 2020-04-27 19:55 | Emergency (ER) | payer SELFPAY ==
--- OUTSIDE RECORDS SUMMARY | 2020-04-27 19:58 | XMS REPORT | Continuity of Care Document ---
:1985 Author Organization [facility] t Address [address] [place] [address] Care Team Providers Name Role Phone Unavailable Unavailable Unavailable Problems This patient has no known problems. Allergies, Adverse Reactions, Alerts This patient has no known allergies or adverse reactions. Medications This patient has no known medications. Procedures This patient has no known procedures. Results Test Description Test Time Test Comments Results Result Comments Source Hemoglobin A1c 2020-02-03 11:16:19 Test Item Value Reference Range Interpretation Comme nts Hemoglobin A1c (test code = 5.1 % 4.0-5.8 Diabetic >=6.5 %Prediabetes 5.7-6.4 Hemoglobin A1c) %Normal <5.7 % Lipid [id number] 11:16:19 Test Item Value Reference Range Interpretation Comments Cholesterol Total 356 mg/dL N Low-risk l evel (test code = (desirable) - < 200 Cholesterol Total) mg/dlMode rate-risk level (borderli ne) - 200-239 mg/dlHigh-risk level - ?240 mg/dl Triglycerides (test 333 mg/dL N Normal - <150 code = Triglycerides) mg/dlB orderline high - 150-199 mg/dl High - 200-499 mg/dl Very high - ?500 mg/ dl HDL (test code = HDL) 39.70 mg/dL N Low-ri sk level (desirable) - ? 60 mg/dlHigh-risk level (undesirable) - <40 mg/dl LDL (test code = LDL) 250 mg/dL N The eq uation being used in this calculation is LDL = (Chol - HDL) - (Trig / 5) LDL, Direct (test code 288.5 mg/dL N Optim al - <100 = LDL, Direct) mg/dlNear optimal/above optimal - 100-1 29 mg/dlBorderline high - 130-159 mg/dl High - 160-189 mg/dl Very high - ?190 mg/ dl VLDL (test code = 67 mg/dL 5-40 H The equati on being VLDL) used in this calculation is VLDL = Trig / 5 Chol/HDL (test code = 9.0 ratio <=5.0 H Chol/HDL) LDL/HDL Ratio (test 9 N The equa tion being code = LDL/HDL Ratio) used i n this calculation is LDL/HDL Ratio=L DL Calc/HDL Chol Thyroid Stimulating [id number] 11:16:19 Test Item Value Reference Range Interpretation Comments TSH (test code = TSH) 2.769 mcIU/mL 0.550-4.780 Valproic Acid [id number] 11:16:19 Test Item Value Reference Range Interpretation Comments Valproic Acid <3.0 mcg/mL N A therapeutic range of Level (test code = 50-100 ug /ml may Valproic Acid indicate effec tive Level) concentrations for many patients; howev er some individuals are best treated at concentrations outside this range. The physician must determine the appropriate therapeutic ran ge for each patient. Urine DOA [id number] 22:26:56 Test Item Value Reference Range Interpretation Comments Amphetamine Screen Ur Negative Negative The sp ecimen is (test code = presumptive pos itive Amphetamine Screen Ur) if th e analyte concentration i s equal to or greater t bonilla 1000 ng/ml.If confirmation of positive result is desired, please order Amphetamine Confirmation, U rine within 7 days. Barbiturate Screen Ur Negative Negative The sp ecimen is (test code = presumptive pos itive Barbiturate Screen Ur) if th e analyte concentration i s equal to or greater t bonilla 200 ng/ml.If confir mation of positive res ult is desired, please order Barbiturate Confirmation, U rine within 7 days. Benzodiazepines Ur Negative Negative The speci men is (test code = presumptive pos itive Benzodiazepines Ur) if the a nalyte concentration i s equal to or greater t bonilla 200 ng/ml.If confir mation of positive res ult is desired, please order Benzodiazephine Confirmation, U rine within 7 days. Cocaine Screen Ur (test Negative Negative The specimen is code = Cocaine Screen presum ptive positive Ur) if the analyte concentration i s equal to or greater t bonilla 300 ng/ml.If confir mation of positive res ult is desired, please order Cocaine Metabol ite Confirmation, U rine within 7 days. Opiate Screen Ur (test Negative Negative The s pecimen is code = Opiate Screen presump tive positive Ur) if the analyte concentration i s equal to or greater t bonilla 2000 ng/ml.If confirmation of positive result is desired, please order Opiate Confirm ation, Urine within 7 days. U PCP Scrn (test code = Negative Negative The specimen is U PCP Scrn) presumptive pos itive if the analyte concentration i s equal to or greater t bonilla 25 ng/ml.If confir mation of positive res ult is desired, please order Phencyclidine Confirmation, U rine within 7 days. Cannabinoid Screen Ur Negative Negative The sp ecimen is (test code = presumptive pos itive Cannabinoid Screen Ur) if th e analyte concentration i s equal to or greater t bonilla 50 ng/ml.If confir mation of positive res ult is desired, please order Cannabinoid (TH C) Confirmation, U rine within 7 days. U Methadone Scr (test Negative Negative The sp ecimen is code = U Methadone Scr) pres umptive positive if the analyte concentration i s equal to or greater t bonilla 300 ng/ml.If confir mation of positive res ult is desired, please order Methadone Confirmation, U rine within 7 days. U Propoxyphene (test Negative Negative The spe cimen is code = U Propoxyphene) presu mptive positive if the analyte concentration i s equal to or greater t bonilla 300 ng/ml.If confir mation of positive res ult is desired, please order Propoxyphene Confirmation wi thin 7 days. Alcohol [id number] 22:12:37 Test Item Value Reference Range Interpretation Comments Ethanol Level 5.4 mg/dL N The pharmacolo gical (test code = response to blo od alcohol Ethanol Level) levels may va ry from individual to i ndividual. The fatal osmel ntration has been report ed to be >400 mg/dl. Comprehensive Metabolic [id number] 22:12:36 Test Item Value Reference Range Interpretation Comments Sodium Level (test code = Sodium 139.0 mmol/L 136.0-145.0 Level) Potassium Level (test code = 3.90 mmol/L 3.50-5.10 Potassium Level) Chloride Level (test code = 104.0 mmol/L 98.0-107.0 Chloride Level) CO2 (test code = CO2) 27 mmol/L 20-31 Anion Gap (test code = Anion 8.3 mmol/L 5.0-15.0 Gap) BUN (test code = BUN) 14 mg/dL 9-23 Creatinine Level (test code = 1.17 mg/dL 0.70-1.30 Creatinine Level) BUN/Creat Ratio (test code = 12.0 ratio 10.0-20.0 BUN/Creat Ratio) Glucose Level (test code = 139 mg/dL 74-106 H Glucose Level) Calcium Level (test code = 9.6 mg/dL 8.3-10.6 Calcium Level) Alk Phos (test code = Alk Phos) 147 U/L 46-116 H Bilirubin Total (test code = 0.6 mg/dL 0.2-1.1 Bilirubin Total) Albumin Level (test code = 5.0 g/dL 3.2-4.8 H Albumin Level) Protein Total (test code = 7.2 g/dL 5.7-8.2 Protein Total) ALT (test code = ALT) 77 U/L 10-49 H AST (test code = AST) 39 U/L <=34 H Globulin (test code = Globulin) 2.2 g/dL 2.3-3.5 L A/G Ratio (test code = A/G 2.3 g/dL 0.8-2.0 H Ratio) Hemolysis (test code = 0 g/dL 1-2 H Hemolysis) Icterus (test code = Icterus) 0 g/dL 1-2 H Lipemia (test code = Lipemia) 0 g/dL 1-2 H Comprehensive Metabolic [id number] 22:12:36 Test Item Value Reference Range Interpretation Comments Sodium Level (test 139.0 mmol/L 136.0-145.0 code = Sodium Level) Potassium Level 3.90 mmol/L 3.50-5.10 (test code = Potassium Level) Chloride Level (test 104.0 mmol/L 98.0-107.0 code = Chloride Level) CO2 (test code = 27 mmol/L 20-31 CO2) Anion Gap (test code 8.3 mmol/L 5.0-15.0 = Anion Gap) BUN (test code = 14 mg/dL 9-23 BUN) Creatinine Level 1.17 mg/dL 0.70-1.30 (test code = Creatinine Level) BUN/Creat Ratio 12.0 ratio 10.0-20.0 (test code = BUN/Creat Ratio) Glucose Level (test 139 mg/dL 74-106 H code = Glucose Level) Calcium Level (test 9.6 mg/dL 8.3-10.6 code = Calcium Level) Alk Phos (test code 147 U/L 46-116 H = Alk Phos) Bilirubin Total 0.6 mg/dL 0.2-1.1 (test code = Bilirubin Total) Albumin Level (test 5.0 g/dL 3.2-4.8 H code = Albumin Level) Protein Total (test 7.2 g/dL 5.7-8.2 code = Protein Total) ALT (test code = 77 U/L 10-49 H ALT) AST (test code = 39 U/L <=34 H AST) Globulin (test code 2.2 g/dL 2.3-3.5 L = Globulin) A/G Ratio (test code 2.3 g/dL 0.8-2.0 H = A/G Ratio) eGFR AA (test code = >60 >=60 eGFR (e stimated eGFR AA) mL/min/1.73 m2 Glomerular Filtration Rate ) is an estimated va lue, calculated from the patient's serum creatinine usin g the MDRD equation. It is NOT the patient 's actual GFR. The eGFR provides a more clinically usef ul measure of kidn ey disease than se rum creatinine alone.This calculation isaura es sex and race in to account, if the information is provided. If th e race is not provided, and t he patient is -Thu n, multiply by 1.2 12. If sex is not provided, and t he patient is fema le, multiply by 0.7 42. Results for pat ients <18 years of ag e have not been validated by th e MDRD study and should be interpreted wit h caution. eGFR R esult Interpretation: eGFR > or = 60 is in the Normal RangeeGF R < 60 may mean kid william diseaseeGFR < 1 5 may mean kidney failure Rang es recommended by the National Kidney Foundation, http://nkdep.ni h.gov Hemolysis (test code 0 g/dL 1-2 H = Hemolysis) Icterus (test code = 0 g/dL 1-2 H Icterus) Lipemia (test code = 0 g/dL 1-2 H Lipemia) Comprehensive Metabolic [id number] 22:12:36 Test Item Value Reference Range Interpretation Comments Sodium Level (test 139.0 mmol/L 136.0-145.0 code = Sodium Level) Potassium Level 3.90 mmol/L 3.50-5.10 (test code = Potassium Level) Chloride Level (test 104.0 mmol/L 98.0-107.0 code = Chloride Level) CO2 (test code = 27 mmol/L 20-31 CO2) Anion Gap (test code 8.3 mmol/L 5.0-15.0 = Anion Gap) BUN (test code = 14 mg/dL 9-23 BUN) Creatinine Level 1.17 mg/dL 0.70-1.30 (test code = Creatinine Level) BUN/Creat Ratio 12.0 ratio 10.0-20.0 (test code = BUN/Creat Ratio) Glucose Level (test 139 mg/dL 74-106 H code = Glucose Level) Calcium Level (test 9.6 mg/dL 8.3-10.6 code = Calcium Level) Alk Phos (test code 147 U/L 46-116 H = Alk Phos) Bilirubin Total 0.6 mg/dL 0.2-1.1 (test code = Bilirubin Total) Albumin Level (test 5.0 g/dL 3.2-4.8 H code = Albumin Level) Protein Total (test 7.2 g/dL 5.7-8.2 code = Protein Total) ALT (test code = 77 U/L 10-49 H ALT) AST (test code = 39 U/L <=34 H AST) Globulin (test code 2.2 g/dL 2.3-3.5 L = Globulin) A/G Ratio (test code 2.3 g/dL 0.8-2.0 H = A/G Ratio) eGFR AA (test code = >60 >=60 eGFR (e stimated eGFR AA) mL/min/1.73 m2 Glomerular Filtration Rate ) is an estimated va lue, calculated from the patient's serum creatinine usin g the MDRD equation. It is NOT the patient 's actual GFR. The eGFR provides a more clinically usef ul measure of kidn ey disease than se rum creatinine alone.This calculation isaura es sex and race in to account, if the information is provided. If th e race is not provided, and t he patient is -Thu n, multiply by 1.2 12. If sex is not provided, and t he patient is fema le, multiply by 0.7 42. Results for pat ients <18 years of ag e have not been validated by [facility] MDRD study and should be interpreted wit h caution. eGFR R esult Interpretation: eGFR > or = 60 is in the Normal RangeeGF R < 60 may mean kid william diseaseeGFR < 1 5 may mean kidney failure Rang es recommended by the National Kidney Foundation, http://nkdep.ni h.gov eGFR Non-AA (test >60.00 >=60.00 eGFR (enrique mated code = eGFR Non-AA) mL/min/1.73 m2 Glomer ular Filtration Rate ) is an estimated va lue, calculated from the patient's serum creatinine usin g the MDRD equation. It is NOT the patient 's actual GFR. The eGFR provides a more clinically usef ul measure of kidn ey disease than se rum creatinine alone.This calculation isaura es sex and race in to account, if the information is provided. If th e race is not provided, and t he patient is -Thu n, multiply by 1.2 12. If sex is not provided, and t he patient is fema le, multiply by 0.7 42. Results for pat ients <18 years of ag e have not been validated by [facility] MDRD study and should be interpreted wit h caution. eGFR R esult Interpretation: eGFR > or = 60 is in the Normal RangeeGF R < 60 may mean kid william diseaseeGFR < 1 5 may mean kidney failure Rang es recommended by the National Kidney Foundation, http://nkdep.ni h.gov Hemolysis (test code 0 g/dL 1-2 H = Hemolysis) Icterus (test code = 0 g/dL 1-2 H Icterus) Lipemia (test code = 0 g/dL 1-2 H Lipemia) Complete Blood Count with [id number] 21:33:29 Test Item Value Reference Range Interpretation Comments WBC (test code = WBC) 6.8 x10 4.4-10.5 RBC (test code = RBC) 4.50 x10 4.10-5.70 Hgb (test code = Hgb) 13.9 g/dL 13.4-17.4 Hct (test code = Hct) 42.5 % 38.7-52.0 MCV (test code = MCV) 94.40 fL 80.00-100.00 MCHC (test code = 32.70 g/dL 32.00-37.50 MCHC) RDW CV (test code = 13.8 % 11.5-14.5 RDW CV) MCH (test code = MCH) 30.9 pg 27.0-32.5 Platelets (test code = 320.0 x10 140.0-440.0 Platelets) MPV (test code = MPV) 9.7 fL N Slide Review (test Auto Auto Result cr eated by code = Slide Review) GL_SJM_ SLIDE_REV_AUTO nRBC (test code = 0 N nRBC) NRBC Abs (test code = 0.00 x10 N NRBC Abs) IPF (test code = IPF) 0 % N Automated [id number] 21:33:29 Test Item Value Reference Range Interpretation Comments Neutro Auto (test code = Neutro 39.4 % 36.0-70.0 Auto) Lymph Auto (test code = Lymph Auto) 44.1 % 12.0-44.0 H Wilkinson Auto (test code = Wilkinson Auto) 10.7 % 0.0-11.0 Eos, Auto (test code = Eos, Auto) 5.1 % 0.0-7.0 Basophil Auto (test code = Basophil 0.4 % 0.0-2.0 Auto) Neutro Absolute (test code = Neutro 2.7 x10 1.6-7.4 Absolute) Lymph Absolute (test code = Lymph 3.01 x10 .50-4.60 Absolute) Wilkinson Absolute (test code = Wilkinson .73 x10 .00-1.20 Absolute) Eos Absolute (test code = Eos 0.35 x10 0.00-0.74 Absolute) Baso Absolute (test code = Baso 0.03 x10 0.00-0.21 Absolute) IG [id number] 21:33:29 Test Item Value Reference Range Interpretation Comments IG (test code = IG) 0.3 % 0.0-5.0 IG Abs (test code = IG Abs) 0 x10 N Urinalysis with Culture, if [id number] 21:32:36 Test Item Value Reference Range Interpretation Comments UA Color (test code = UA Color) YELLO Yellow UA Appear (test code = UA CLEAR Clear Appear) UA pH (test code = UA pH) 6.0 UA Spec Grav (test code = UA 1.020 1.001-1.035 Spec Grav) UA Glucose (test code = UA NEG Negative Glucose) UA Bili (test code = UA Bili) NEG Negative UA Ketones (test code = UA NEG Negative Ketones) UA Blood (test code = UA Blood) NEG Negative UA Protein (test code = UA NEG Negative Protein) UA Urobilinogen (test code = UA .2 mg/dL >0.2 Urobilinogen) UA Nitrite (test code = UA NEG Negative Nitrite) UA Leuk Est (test code = UA NEG Negative Leuk Est) UA Micro Ind? (test code = UA Not Indicated Not Indicated Micro Ind?)
[2020-04-27 20:33] LABS: Urine Blood 2+ (NEG); Urine Glucose NEGATIVE (NEG); Urine Protein NEGATIVE (NEG); Urine Specific Gravity >1.030 (1.005-1.030)
[2020-04-27 20:37] LABS: Urine Bacteria NONE SEEN /HPF (NONE SEEN); Urine Culture Reflex Order NOT NEEDED
--- NOTE | 2020-04-27 20:53 | EDPHYS ---
Physician Documentation [facility] Name: Branden Davidson Age: 34 yrs Sex: Male : 1985 Arrival Date: 04/27/2020 Time: 19:57 Bed 5 Private MD: ED Physician Sterling Angel HPI: 04/27 20:47 This 34 yrs old Male presents to ER via Ambulatory with complaints of Urinary snw Problem. 20:47 Onset: The symptoms/episode began/occurred suddenly. Associated signs and symptoms: snw Pertinent positives: dysuria. The patient has not experienced similar symptoms in the past. The patient has not recently seen a physician. Historical: - Allergies: 20:06 Xanax; ll1 - PMHx: 20:06 Bipolar disorder; Depression; Schizophrenia; Seizures; ll1 - Immunization history:: Flu vaccine is not up to date. - Social history:: Smoking status: Reported history of juuling and/or vaping. ROS: 20:46 Constitutional: Negative for fever, chills, and weight loss, Eyes: Negative for injury, snw pain, redness, and discharge, ENT: Negative for injury, pain, and discharge, Neck: Negative for injury, pain, and swelling, Cardiovascular: Negative for chest pain, palpitations, and edema, Respiratory: Negative for shortness of breath, cough, wheezing, and pleuritic chest pain, Abdomen/GI: Negative for abdominal pain, nausea, vomiting, diarrhea, and constipation, Back: Negative for injury and pain, : Positive for dysuria, scant bleeding, denies discharge and swelling, Denies unprotected intercourse MS/Extremity: Negative for injury and deformity, Skin: Negative for injury, rash, and discoloration, Neuro: Negative for headache, weakness, numbness, tingling, and seizure, Psych: Negative for depression, anxiety, suicide ideation, homicidal ideation, and hallucinations. Exam: 20:46 Constitutional: This is a well developed, well nourished patient who is awake, alert, snw and in no acute distress. Head/Face: Normocephalic, atraumatic. Eyes: Pupils equal round and reactive to light, extra-ocular motions intact. Lids and lashes normal. Conjunctiva and sclera are non-icteric and not injected. Cornea within normal limits. Periorbital areas with no swelling, redness, or edema. ENT: Nares patent. No nasal discharge, no septal abnormalities noted. Tympanic membranes are normal and external auditory canals are clear. Oropharynx with no redness, swelling, or masses, exudates, or evidence of obstruction, uvula midline. Mucous membranes moist. Neck: Trachea midline, no thyromegaly or masses palpated, and no cervical lymphadenopathy. Supple, full range of motion without nuchal rigidity, or vertebral point tenderness. No Meningismus. Chest/axilla: Normal chest wall appearance and motion. Nontender with no deformity. No lesions are appreciated. Cardiovascular: Regular rate and rhythm with a normal S1 and S2. No gallops, murmurs, or rubs. Normal PMI, no JVD. No pulse deficits. Respiratory: Lungs have equal breath sounds bilaterally, clear to auscultation and percussion. No rales, rhonchi or wheezes noted. No increased work of breathing, no retractions or nasal flaring. Abdomen/GI: Soft, non-tender, with normal bowel sounds. No distension or tympany. No guarding or rebound. No evidence of tenderness throughout. Back: No spinal tenderness. No costovertebral tenderness. Full range of motion. Skin: Warm, dry with normal turgor. Normal color with no rashes, no lesions, and no evidence of cellulitis. MS/ Extremity: Pulses equal, no cyanosis. Neurovascular intact. Full, normal range of motion. Neuro: Awake and alert, GCS 15, oriented to person, place, time, and situation. Cranial nerves II-XII grossly intact. Motor strength 5/5 in all extremities. Sensory grossly intact. Cerebellar exam normal. Normal gait. Vital Signs: 20:05 BP 126 / 84; Pulse 83; Resp 17; Temp 98.4; Pulse Ox 96% ; Pain 0/10; ll1 MDM: 20:45 Patient medically screened. snw 20:51 Data reviewed: vital signs, nurses notes. Data interpreted: Pulse oximetry: on room air snw is 96 %. Interpretation: acceptable. Counseling: I had a detailed discussion with the patient and/or guardian regarding: the historical points, exam findings, and any diagnostic results supporting the discharge/admit diagnosis, the presence of at least one elevated blood pressure reading (>120/80) during this emergency department visit, lab results, the need for outpatient follow up, for definitive care. Special discussion: I have referred the patient to see his PCP for further evaluation of high blood pressure. Based on the history and exam findings, there is no indication for further emergent testing or inpatient evaluation. I discussed with the patient/guardian the need to see the primary care provider for further evaluation of the symptoms. 04/27 20:08 Order name: Urine Culture snw 04/27 20:08 Order name: Urine Microscopic Only snw 04/27 20:29 Order name: Urine Dipstick--Ancillary (enter results) ds4 04/27 20:33 Order name: Urine Dipstick-Ancillary; Complete Time: 20:34 EDHI 04/27 20:38 Order name: Urine Microscopic Only; Complete Time: 20:44 EDHI 04/27 20:08 Order name: Urine Dipstick-Ancillary (obtain specimen); Complete Time: 20:27 snw Administered Medications: 21:10 Drug: Rocephin (cefTRIAXone) 1 grams Route: IM; Site: right gluteus; lp1 21:10 Follow up: Response: Medication administered at discharge. lp1 21:10 Drug: Zithromax 1 grams Route: PO; lp1 21:10 Follow up: Response: Medication administered at discharge. lp1 Disposition: 04/28 01:50 Co-signature as Attending Physician, Sterling Angel MD. [email or web address] Disposition: 04/27/20 20:52 Discharged to Home. Impression: Urinary tract infection, site not specified, Dysuria. - Condition is Stable. - Discharge Instructions: Dysuria, Urinary Tract Infection, Adult, Rehydration, Adult. - Medication Reconciliation Form, Thank You Letter, Antibiotic Education, Prescription Opioid Use form. - Follow up: Emergency Department; When: As needed; Reason: Worsening of condition. Follow up: Private Physician; When: 2 - 3 days; Reason: Recheck today's complaints, Continuance of care, Re-evaluation by your physician. Signatures: Dispatcher [employer] [facility] Monse Alvarez FNP-C FASHION CONSULTANT SELLING-Csnw Brittaney Negrete, RN RN lp1 Jelly Marcelino RN RN 1 Sterling Angel MD MD [email or web address] Corrections: (The following items were deleted from the chart) 04/27 21:11 20:52 04/27/2020 20:52 Discharged to Home. Impression: Urinary tract infection, site lp1 not specified; Dysuria. Condition is Stable. Forms are Medication Reconciliation Form, Thank You Letter, Antibiotic Education, Prescription Opioid Use. Follow up: Emergency Department; When: As needed; Reason: Worsening of condition. Follow up: Private Physician; When: 2 - 3 days; Reason: Recheck today's complaints, Continuance of care, Re-evaluation by your physician. snw
--- NOTE | 2020-04-27 20:53 | ER ---
Nurse's Notes [facility] Name: Branden Davidson Age: 34 yrs Sex: Male : 1985 Arrival Date: 04/27/2020 Time: 19:57 Bed 5 Private MD: Diagnosis: Urinary tract infection, site not specified;Dysuria Presentation: 04/27 20:05 Chief complaint: Patient states: Dysuria, oliguria with frequency for 1 week. No fever. ll1 Coronavirus screen: Client denies travel out of the [place] in the last 14 days. At this time, the client does not indicate any symptoms associated with coronavirus-19. Ebola Screen: Patient denies travel to an Ebola-affected area in the 21 days before illness onset. Initial Sepsis Screen: Does the patient meet any 2 criteria? No. Patient's initial sepsis screen is negative. Risk Assessment: Do you want to hurt yourself or someone else? Patient reports no desire to harm self or others. Onset of symptoms was April 20, 2020. 20:05 Method Of Arrival: Ambulatory ll1 20:05 Acuity: NOEMI 4 ll1 20:36 Initial Sepsis Screen: Does the patient have a suspected source of infection? No. lp1 Patient's initial sepsis screen is negative. Historical: - Allergies: 20:06 Xanax; ll1 - PMHx: 20:06 Bipolar disorder; Depression; Schizophrenia; Seizures; ll1 - Immunization history:: Flu vaccine is not up to date. - Social history:: Smoking status: Reported history of juuling and/or vaping. Screenin:35 Abuse screen: Denies threats or abuse. Denies injuries from another. Nutritional lp1 screening: No deficits noted. Tuberculosis screening: No symptoms or risk factors identified. Fall Risk None identified. Assessment: 20:35 General: Appears in no apparent distress. Behavior is calm, cooperative, appropriate lp1 for age. Pain: Denies pain. Neuro: Level of Consciousness is awake, alert, obeys commands. Cardiovascular: No deficits noted. Respiratory: No deficits noted. GI: No deficits noted. : Reports burning with urination, since 1 week ago Denies low back pain. EENT: No signs and/or symptoms were reported regarding the EENT system. Derm: Skin is pink, warm \T\ dry. Musculoskeletal: No deficits noted. 21:11 Reassessment: Patient appears in no apparent distress at this time. Patient lp1 demonstrates readiness for discharge at this time. Vital Signs: 20:05 BP 126 / 84; Pulse 83; Resp 17; Temp 98.4; Pulse Ox 96% ; Pain 0/10; ll1 ED Course: 19:57 Patient arrived in ED. cl3 20:06 Triage completed. ll1 20:06 Arm band placed on Patient placed in an exam room, on a stretcher. ll1 20:07 Monse Alvarez FNP-C [facility]. snw 20:07 Sterling Angel MD is Attending Physician. snw 20:27 Urine Microscopic Only Sent. ds4 20:27 Urine Culture Sent. ds4 20:35 Brittaney Negrete, RN is Primary Nurse. lp1 20:36 Patient has correct armband on for positive identification. lp1 21:10 No provider procedures requiring assistance completed. Patient did not have IV access lp1 during this emergency room visit. Administered Medications: 21:10 Drug: Rocephin (cefTRIAXone) 1 grams Route: IM; Site: right gluteus; lp1 21:10 Follow up: Response: Medication administered at discharge. lp1 21:10 Drug: Zithromax 1 grams Route: PO; lp1 21:10 Follow up: Response: Medication administered at discharge. lp1 Outcome: 20:52 Discharge ordered by . snw 21:10 Discharged to home ambulatory. lp1 21:10 Condition: good 21:10 Discharge instructions given to patient, Instructed on discharge instructions, follow up and referral plans. Demonstrated understanding of instructions, follow-up care. 21:11 Patient left the ED. lp1 Signatures: Monse Alvarez FNP-C MEAT PACKAGER-Csnw Brittaney Negrete, RN RN lp1 Ernie Sorensen ds4 Bill Marcelino cl3 Jelly Marcelino RN RN ll1
[2020-04-27] MEDS ORDERED: AZITHROMYCIN 250 MG TAB ONE (21:14)
[2020-04-27] MEDS ORDERED: CEFTRIAXONE 1000 MG/VIAL ONE (21:14)
[2020-04-27] MEDS ORDERED: WATER FOR INJ,STERILE 10 ML ONE (21:14)
[2020-04-27 21:35] VITALS: BP 126/84; TEMP 98.4; O2SAT 96
== END 2020-04-27 21:11 | disposition home or self-care (01) ==
LOC: ER 19:55
DX: N39.0 Urinary tract infection, site not specified (principal); Z87.891 Personal history of nicotine dependence; Z88.5 Allergy status to narcotic agent
CPT/HCPCS: 81003; 81015; 87086; 87088; 96372; 99283

== ENCOUNTER 2021-11-19 20:37 | Emergency (ER) | payer SELFPAY ==
--- OUTSIDE RECORDS SUMMARY | 2021-11-19 20:39 | XMS REPORT | Continuity of Care Document ---
:1985 Author Organization [facility] t Address [address] [place] [address] Care Team Providers Name Role Phone Berto Attending Clinician Unavailable Berto Attending Clinician Unavailable Berto Admitting Clinician Unavailable Payers Payer Name Policy Type Policy Number Effective Date Expiration Date S ource Problems This patient has no known problems. Allergies, Adverse Reactions, Alerts Allergy Allergy Status Severity Reaction(s) Onset Inactive Treating Comm ents Source Name Type Date Date Clinician Xanax Drug Active [facility] Xanax Drug Active [facility] Xanax Drug Active [facility] Xanax Drug Active [facility] Xanax Drug Active [facility] Xanax Drug Active [facility] Xanax Drug Active [facility] Xanax Drug Active [facility] Xanax Drug Active [facility] Xanax Drug Active [facility] Medications This patient has no known medications. Vital Signs Vital Name Observation Time Observation Value Comments Source Height/Length Measured 2021-08-19 11:21:12 188 cm Height/Length Measured 2021-08-19 11:15:35 188 cm Height/Length Measured 2021-08-19 11:11:08 188 cm Height/Length Measured 2021-08-19 11:11:01 188 cm Height/Length Measured 2021-08-19 11:11:00 188 cm Height/Length Measured 2021-08-19 11:10:59 188 cm Height/Length Measured 2021-08-19 11:10:55 188 cm Height/Length Measured 2021-08-19 11:10:53 188 cm Height/Length Measured 2021-08-19 11:10:52 188 cm Height/Length Measured 2020-02-01 20:28:13 Procedures This patient has no known procedures. Encounters Start End Encounter Admission Attending Care Care Encounter Source Date/Time Date/Time Type Type Clinicians Facility Department ID 2020-02-01 Inpatient 2 Mathieu Thomsonkaren [facility] [id number] 19:57:00 Nolan Thomson [facility] 2020-02-01 2020-02-01 Emergency [facility] ZHENG [id number] 20:26:00 20:26:00 [facility] 2020-02-01 2020-02-01 Emergency [facility] Z[facility]ENG [id number] 20:26:00 20:26:00 -[id number] [facility] Results Test Description Test Time Test Comments Results Result Comments Source Hemoglobin A1c 2020-02-03 11:16:19 Test Item Value Reference Range Interpretation Comme nts Hemoglobin A1c (test code = 5.1 % 4.0-5.8 Diabetic >=6.5 %Prediabetes 5.7-6.4 Hemoglobin A1c) %Normal <5.7 % Lipid [id number] 11:16:19 Test Item Value Reference Range Interpretation [...] LDL/HDL Ratio=L DL Calc/HDL Chol Thyroid Stimulating [id number] 11:16:19 Test Item Value Reference Range Interpretation Comments TSH (test code = TSH) 2.769 mcIU/mL 0.550-4.780 Valproic Acid [id number] 11:16:19 Test Item Value Reference Range Interpretation Comments Valproic Acid <3.0 mcg/mL N A therapeutic range of Level (test code = 50-100 ug /ml may Valproic Acid indicate effec tive Level) concentrations for many patients; howev er some individuals are best treated at concentrations outside this range. The physician must determine the appropriate therapeutic ran ge for each patient. Urine [id number] 22:26:56 Test Item Value Reference Range Interpretation [...] Propoxyphene Confirmation wi thin 7 days. Alcohol [id number] 22:12:37 Test Item Value Reference Range Interpretation Comments Ethanol Level 5.4 mg/dL N The pharmacolo gical (test code = response to blo od alcohol Ethanol Level) levels may va ry from individual to i ndividual. The fatal osmel ntration has been report ed to be >400 mg/dl. Comprehensive Metabolic [id number] 22:12:36 Test Item Value Reference Range Interpretation [...] Lipemia) 0 g/dL 1-2 H Comprehensive Metabolic [id number] 22:12:36 Test Item Value Reference Range Interpretation [...] 0 g/dL 1-2 H Lipemia) Comprehensive Metabolic [id number] 22:12:36 Test Item Value Reference Range Interpretation [...] ag e have not been validated by [facility] MDRD study and should be interpreted wit [...] ag e have not been validated by [facility] MDRD study and should be interpreted wit [...] 1-2 H Lipemia) Complete Blood Count with [id number] 21:33:29 Test Item Value Reference Range Interpretation [...] code = IPF) 0 % N Automated [id number] 21:33:29 Test Item Value Reference Range Interpretation Comments Neutro Auto (test code = Neutro 39.4 % 36.0-70.0 Auto) Lymph Auto (test code = Lymph Auto) 44.1 % 12.0-44.0 H [place] Auto (test code = [place] Auto) 10.7 % 0.0-11.0 Eos, Auto (test code = Eos, Auto) 5.1 % 0.0-7.0 Basophil Auto (test code = Basophil 0.4 % 0.0-2.0 Auto) Neutro Absolute (test code = Neutro 2.7 x10 1.6-7.4 Absolute) Lymph Absolute (test code = Lymph 3.01 x10 .50-4.60 Absolute) [place] Absolute (test code = [place] .73 x10 .00-1.20 Absolute) Eos Absolute (test code = Eos 0.35 x10 0.00-0.74 Absolute) Baso Absolute (test code = Baso 0.03 x10 0.00-0.21 Absolute) IG [id number] 21:33:29 Test Item Value Reference Range Interpretation Comments IG (test code = IG) 0.3 % 0.0-5.0 IG Abs (test code = IG Abs) 0 x10 N Urinalysis with Culture, if [id number] 21:32:36 Test Item Value Reference Range Interpretation [...]
[2021-11-19] MEDS ORDERED: PROMETHAZINE INJ 25 MG/ML AMP ONE ×2 (21:18→22:27)
[2021-11-19] MEDS ORDERED: PANTOPRAZOLE 40 MG INJ ONE (21:18)
[2021-11-19] MEDS ORDERED: NA CHLORIDE 0.9% 1,000 ML ONE (21:19)
[2021-11-19 21:54] LABS: Hematocrit 40.4 % (39.6-49.0); Lymphocytes % 39.4 % (15.3-44.8); MPV 7.5 fL (7.6-11.3); RBC Red Blood Cell Count 4.33 M/uL (4.33-5.43)
[2021-11-19 21:56] LABS: Protime INR 0.99
--- NOTE | 2021-11-19 21:56 | RAD REPORT ---
EXAM DESCRIPTION: CT - Abdomen Pelvis W Contrast - 11/19/2021 9:42 pm CLINICAL HISTORY: Abdominal pain COMPARISON: 2019 TECHNIQUE: Computed axial tomography of the abdomen pelvis was obtained. 100 cc Isovue-300 was admin istered intravenously. Oral contrast was not requested which limits evaluation of bowel. All CT scans are performed using dose optimization technique as appropriate and may include automated exposure control or mA/KV adjustment according to patient size. FINDINGS: The liver, spleen, pancreas, adrenal and kidneys appear unremarkable. There is no evidence of diverticulitis. Normal appendix The wall of the distal esophagus appears thickened A few of the images are degraded by motion artifact IMPRESSION: Apparent thickening of the wall of the distal esophagus may indicate inflammation
[2021-11-19 22:02] LABS: Albumin 4.1 g/dL (3.4-5.0); Bilirubin Total 0.7 mg/dL (0.2-1.0); Potassium 3.5 mmol/L (3.5-5.1); Protein, Total 8.3 g/dL (6.4-8.2)
--- NOTE | 2021-11-19 22:21 | EDPHYS ---
Physician Documentation [facility] Name: Branden Davidson Age: 36 yrs Sex: Male : 1985 Arrival Date: 11/19/2021 Time: 20:39 Bed 18 Private MD: ED Physician Kristian Mchugh HPI: 11/19 21:06 This 36 yrs old Male presents to ER via Ambulatory with complaints of Vomiting, -Blood. rn 21:06 The patient presents to the emergency department with nausea, vomiting. Onset: The rn symptoms/episode began/occurred today. Possible causes: unknown. The symptoms are aggravated by nothing. The symptoms are alleviated by nothing. Associated signs and symptoms: Pertinent positives: anorexia, GI bleeding, nausea, vomiting, Pertinent negatives: diarrhea, fever. Severity of symptoms: At their worst the symptoms were moderate in the emergency department the symptoms are unchanged. The patient has not experienced similar symptoms in the past. The patient has not recently seen a physician. Pt reports began vomiting earlier today, several episodes of non-bloody emesis, not able to keep anything down, then threw up a small amount of blood 3 times. Mild epigastric pain. No blood in stool. No diarrhea. NO fever. No change in medication. . Historical: - Allergies: 20:47 Xanax; ab2 - PMHx: 20:47 Bipolar disorder; Depression; Schizophrenia; Seizures; ab2 - PSHx: 20:47 None; ab2 - Immunization history:: Adult Immunizations up to date. - Social history:: Smoking status: Reported history of juuling and/or vaping. - Family history:: not pertinent. - Hospitalizations: : No recent hospitalization is reported. ROS: 21:06 Constitutional: Negative for fever, chills, and weight loss, Eyes: Negative for injury, rn pain, redness, and discharge, Neck: Negative for injury, pain, and swelling, Cardiovascular: Negative for chest pain, palpitations, and edema, Respiratory: Negative for shortness of breath, cough, wheezing, and pleuritic chest pain, Abdomen/GI: + vomiting blood, negative for diarrhea, mild epigastric abd pain Back: Negative for injury and pain, : Negative for injury, bleeding, discharge, and swelling, MS/Extremity: Negative for injury and deformity, Skin: Negative for injury, rash, and discoloration, Neuro: Negative for headache, weakness, numbness, tingling, and seizure. Exam: 21:10 Constitutional: This is a well developed, well nourished patient who is awake, alert, rn holding emesis bag with retching, no blood noted Head/Face: Normocephalic, atraumatic. Cardiovascular: Tachycardic, regular. No pulse deficits. Respiratory: Lungs have equal breath sounds bilaterally, clear to auscultation and percussion. No rales, rhonchi or wheezes noted. No increased work of breathing, no retractions or nasal flaring. Abdomen/GI: Soft, non-tender, with normal bowel sounds. No distension or tympany. No guarding or rebound. No evidence of tenderness throughout. Vital Signs: 20:45 BP 127 / 98; Pulse 109; Resp 18; Temp 98.0(TE); Pulse Ox 100% on R/A; Weight 89.81 kg; ab2 Height 6 ft. 2 in. (187.96 cm); Pain 0/10; 21:15 BP 137 / 95; Pulse 96; Resp 16 S; Pulse Ox 96% on R/A; bb 23:00 BP 108 / 74; Pulse 90; Resp 16 S; Pulse Ox 98% on R/A; bb 20:45 Body Mass Index 25.42 (89.81 kg, 187.96 cm) ab2 MDM: 20:45 Patient medically screened. rn 21:15 ED course: Emesis non-bloody in room.. rn 22:18 Differential diagnosis: Nonspecific abd pain, gastritis, pancreatitis, viral rn gastroenteritis, gastroenteritis, esophagitis. Data reviewed: vital signs, nurses notes, lab test result(s), radiologic studies, CT scan, and as a result, I will discharge patient. Counseling: I had a detailed discussion with the patient and/or guardian regarding: the historical points, exam findings, and any diagnostic results supporting the discharge/admit diagnosis, lab results, radiology results, the need for outpatient follow up, to return to the emergency department if symptoms worsen or persist or if there are any questions or concerns that arise at home. Response to treatment: the patient's symptoms have markedly improved after treatment, and as a result, I will discharge patient. Special discussion: Based on the patient's Hx, exam, and Dx evaluation, there is no indication for emergent surgery or inpatient Tx. It is understood by the patient/guardian that if the Sx's persist or worsen they need to return immediately for re-evaluation. I discussed with the patient/guardian in detail that at this point there is no indication for admission to the hospital. It is understood, however, that if the symptoms persist or worsen the patient needs to return immediately for re-evaluation. Based on the history and exam findings, there is no indication for further emergent testing or inpatient evaluation. I discussed with the patient/guardian the need to see the science writer for further evaluation of the symptoms. ED course: Pt feels much better, requesting to go home, told him we would re-dose phenergan since pharmacy closed at night. No further emesis or hematemesis since arrival. Will dc home with zofran prn and antacid medication. Return precautions given and understood.. 11/19 20:52 Order name: CBC with Diff; Complete Time: 22:05 11/19 20:52 Order name: CMP; Complete Time: 22: 11/19 20:52 Order name: Lipase; Complete Time: 22: 11/19 20:52 Order name: CT Abd/Pelvis - IV Contrast Only; Complete Time: 22: 11/19 20:52 Order name: Protime (+inr); Complete Time: 22: 11/19 20:52 Order name: Ptt, Activated; Complete Time: 22: 11/19 20:52 Order name: IV Saline Lock; Complete Time: 21:14 11/19 20:52 Order name: Labs collected and sent; Complete Time: 21:14 rn Administered Medications: 21:20 Drug: NS 0.9% 1000 ml Route: IV; Rate: 1 bolus; Site: right antecubital; bb 22:20 Follow up: IV Status: Completed infusion; IV Intake: 1000ml bb 21:20 Drug: Phenergan (promethazine) 12.5 mg Route: IVP; Site: right antecubital; bb 22:20 Follow up: Response: No adverse reaction bb 21:23 Drug: ProTONIX (pantoprazole) 40 mg Route: IVP; Site: right antecubital; bb 22:20 Follow up: Response: No adverse reaction bb 22:33 Drug: Phenergan (promethazine) 12.5 mg Route: IVP; Site: right antecubital; bb 22:59 Follow up: Response: No adverse reaction bb Disposition Summary: 11/19/21 22:20 Discharge Ordered Location: Home rn Problem: new rn Symptoms: have improved rn Condition: Stable rn Diagnosis - Gastro-esophageal reflux disease with esophagitis rn - Vomiting rn - Hematemesis rn Followup: rn - With: Sudarshan Arthur MD - When: As needed - Reason: Recheck today's complaints, Re-evaluation by your physician Discharge Instructions: - Discharge Summary Sheet rn - Esophagitis rn - Gastroesophageal Reflux Disease, Adult rn - Gastrointestinal Bleeding rn - Hematemesis rn Forms: - Medication Reconciliation Form rn - Thank You Letter rn - Antibiotic workers compensation attorney - Prescription Opioid Use rn Prescriptions: - ondansetron 4 mg Oral tablet,disintegrating - place 1 tablet by TRANSLINGUAL route every 8 hours As needed; 10 tablet; rn Refills: 0, Product Selection Permitted - Protonix 40 mg Oral Tablet - take 1 tablet by ORAL route once daily; 30 tablet; Refills: 0, Product rn Selection Permitted Signatures: Dispatcher [employer] Scarlett Govea RN RN Kristian Perez MD MD rn Bleininger, Alexis ab2 Corrections: (The following items were deleted from the chart) 21:11 21:06 Constitutional: Negative for fever, chills, and weight loss, rn rn
--- NOTE | 2021-11-19 22:21 | ER ---
Nurse's Notes [facility] Name: Branden Davidson Age: 36 yrs Sex: Male : 1985 Arrival Date: 11/19/2021 Time: 20:39 Bed 18 Private MD: Diagnosis: Gastro-esophageal reflux disease with esophagitis;Vomiting;Hematemesis Presentation: 11/19 20:45 Chief complaint: Patient states: "I've been throwing up blood for about 2 hours now, I ab2 cant keep anything down." Pt c/o a sore throat. Pt denies abdominal pain. Pt states he started vomiting undigested food earlier in the day and now its bloody. Coronavirus screen: Vaccine status: Patient reports receiving the 1st dose of the Covid vaccine. Client denies travel out of the [place] in the last 14 days. Client presents with at least one sign or symptom that may indicate coronavirus-19. Ebola Screen: Patient negative for fever greater than or equal to 101.5 degrees Fahrenheit, and additional compatible Ebola Virus Disease symptoms Patient denies exposure to infectious person. Patient denies travel to an Ebola-affected area in the 21 days before illness onset. No symptoms or risks identified at this time. Initial Sepsis Screen: Does the patient meet any 2 criteria? No. Patient's initial sepsis screen is negative. Does the patient have a suspected source of infection? No. Patient's initial sepsis screen is negative. Risk Assessment: Do you want to hurt yourself or someone else? Patient reports no desire to harm self or others. Onset of symptoms is unknown. 20:45 Method Of Arrival: Ambulatory ab2 20:45 Acuity: NOEMI 3 ab2 Triage Assessment: 20:47 General: Appears in no apparent distress. uncomfortable, Behavior is calm, cooperative, ab2 appropriate for age. Pain: Complains of pain in throat. Neuro: Level of Consciousness is awake, alert, obeys commands, Oriented to person, place, time, situation, Appropriate for age Mgmt Specialist are equal bilaterally Moves all extremities. Gait is steady, Speech is normal. Cardiovascular: No deficits noted. Respiratory: Airway is patent Respiratory effort is even, unlabored, Respiratory pattern is regular, symmetrical. GI: Reports intolerance of fluids, intolerance of food, nausea, vomiting. GI: Pt is actively vomiting. : No deficits noted. No signs and/or symptoms were reported regarding the genitourinary system. Derm: Skin is intact, is healthy with good turgor, Skin is pink, warm \\T\\ dry. Historical: - Allergies: 20:47 Xanax; ab2 - PMHx: 20:47 Bipolar disorder; Depression; Schizophrenia; Seizures; ab2 - PSHx: 20:47 None; ab2 - Immunization history:: Adult Immunizations up to date. - Social history:: Smoking status: Reported history of juuling and/or vaping. - Family history:: not pertinent. - Hospitalizations: : No recent hospitalization is reported. Screenin:15 Abuse screen: Denies threats or abuse. Nutritional screening: No deficits noted. bb Tuberculosis screening: No symptoms or risk factors identified. Fall Risk None identified. Assessment: 21:00 General: Appears in no apparent distress. Behavior is calm, cooperative, Reports bb vomiting today with 3 episodes of bloody emesis. Neuro: Level of Consciousness is awake, alert, obeys commands, Oriented to person, place, time, situation. Cardiovascular: Capillary refill < 3 seconds Patient's skin is warm and dry. Respiratory: Respiratory effort is even, unlabored, Respiratory pattern is regular. GI: Abdomen is round distended, Bowel sounds diminished in right upper quadrant, left upper quadrant, right lower quadrant and left lower quadrant Abd is soft X 4 quads Abdomen is tender to palpation in left upper quadrant Reports vomiting. Derm: Skin is pink, warm \\T\\ dry. 21:32 Reassessment: pt to CT scan via stretcher accompanied by pet technologist. bb 22:39 Reassessment: Patient is alert, oriented x 3, equal unlabored respirations, skin bb warm/dry/pink. pt still gagging medication administered see SEP. 22:58 Reassessment: Patient is alert, oriented x 3, equal unlabored respirations, skin bb warm/dry/pink. pt is still gagging but wants to be discharged ED physician is aware. Pt verbalized understanding of and agrees to plan of care discharge instructions given pt ambulated with steady gait to exit. Vital Signs: 20:45 BP 127 / 98; Pulse 109; Resp 18; Temp 98.0(TE); Pulse Ox 100% on R/A; Weight 89.81 kg; ab2 Height 6 ft. 2 in. (187.96 cm); Pain 0/10; 21:15 BP 137 / 95; Pulse 96; Resp 16 S; Pulse Ox 96% on R/A; bb 23:00 BP 108 / 74; Pulse 90; Resp 16 S; Pulse Ox 98% on R/A; bb 20:45 Body Mass Index 25.42 (89.81 kg, 187.96 cm) ab2 ED Course: 20:39 Patient arrived in ED. bp1 20:45 Kristian Mchugh MD is Attending Physician. rn 20:46 Triage completed. ab2 20:49 Arm band placed on left wrist. ab2 21:08 Scarlett Hung, RN is Primary Nurse. bb 21:10 Inserted saline lock: 20 gauge in right antecubital area, using aseptic technique. ab2 Blood collected. 21:14 Protime (+inr) Sent. ab2 21:14 Ptt, Activated Sent. ab2 21:14 CBC with Diff Sent. ab2 21:14 CMP Sent. ab2 21:14 Lipase Sent. ab2 21:15 Patient has correct armband on for positive identification. Placed in gown. Bed in low bb position. Call light in reach. Side rails up X 1. Pulse ox on. NIBP on. 21:44 CT Abd/Pelvis - IV Contrast Only In Process Unspecified. EDMS 22:20 Sudarshan Arthur MD is Referral Physician. rn 23:00 No provider procedures requiring assistance completed. IV discontinued, intact, bb bleeding controlled, No redness/swelling at site. Pressure dressing applied. Administered Medications: 21:20 Drug: NS 0.9% 1000 ml Route: IV; Rate: 1 bolus; Site: right antecubital; bb 22:20 Follow up: IV Status: Completed infusion; IV Intake: 1000ml bb 21:20 Drug: Phenergan (promethazine) 12.5 mg Route: IVP; Site: right antecubital; bb 22:20 Follow up: Response: No adverse reaction bb 21:23 Drug: ProTONIX (pantoprazole) 40 mg Route: IVP; Site: right antecubital; bb 22:20 Follow up: Response: No adverse reaction bb 22:33 Drug: Phenergan (promethazine) 12.5 mg Route: IVP; Site: right antecubital; bb 22:59 Follow up: Response: No adverse reaction bb Intake: 22:20 IV: 1000ml; Total: 1000ml. bb Outcome: 22:20 Discharge ordered by . harlan 23:01 Discharged to home ambulatory. bb 23:01 Condition: stable 23:01 Discharge instructions given to patient, Instructed on discharge instructions, follow up and referral plans. medication usage, Demonstrated understanding of instructions, follow-up care, medications, Prescriptions given X 2. 23:01 Patient left the ED. bb Signatures: Dispatcher [employer] EDMS Scarlett Hung RN RN bb Nieto, Roman, MD MD rn Paniauga, Brittany bp1 Bleininger, Alexis ab2 Corrections: (The following items were deleted from the chart) 20:47 20:45 BP 127 / 98; Pulse 99bpm; Resp 18bpm; Pulse Ox 100% RA; Temp 98.0F Temporal; ab2 89.81 kg; Height 6 ft. 2 in.; BMI: 25.4; Pain 0/10; ab2 20:49 20:45 Chief complaint: Patient states: "I've been throwing up blood for about 2 hours ab2 now, I cant keep anything down." Pt c/o a sore throat. ab2
[2021-11-20 04:15] VITALS: TEMP 98
[2021-11-20 04:18] VITALS: BP 108/74; O2SAT 98
== END 2021-11-19 23:01 | disposition home or self-care (01) ==
LOC: ER 20:37
DX: K21.00 Gastro-esophageal reflux disease with esophagitis, without bleeding (principal); R11.10 Vomiting, unspecified; F20.9 Schizophrenia, unspecified; Z88.5 Allergy status to narcotic agent
CPT/HCPCS: 36415; 74177; 80053; 82565; 83690; 85025; 85610; 85730; 96361; 96374; 96375; 99284; C9113; J2550; J7030; Q9967